=== PATIENT | female | born 1960 | race Caucasian/White ===

== ENCOUNTER 2024-11-04 10:29 | Outpatient (CLI) | payer OTHER, SELFPAY ==
--- NOTE | ~2024-11-04 | XR_ITS ---
EXAMINATION: XR chest 2V 11/04/2024 10:47 INDICATION: Productive cough PROCEDURE: 2 view chest COMPARISON: No prior studies for comparison. FINDINGS: The lungs are clear. There is calcified granuloma right middle lobe. The cardiomediastinal silhouette is within normal limits. There are no pleural effusions. There is no pneumothorax suspec carolyn. IMPRESSION: 1: NO ACUTE CARDIOPULMONARY DISEASE. Reviewed, dictated and finalized at location A.
--- OUTSIDE RECORDS SUMMARY | 2024-11-04 11:45 | XMS_ITS | Data Portability ---
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 She reports no acute injury, but pain for about 3 weeks in the knee. She also has swelling and pain that radiates from the medial aspect of her knee down the leg. She currently rates her pain as 8/10. She has been taking ibuprofen and naproxen. She has not had any other treatment. Review of systems per patient questionnaire. She has a history of a heart catheterization Physical exam: BMI 42.1. Nonantalgic gait. Neutral alignment. She has tenderness palpation over the medial joint line. Range of motion 0-140, positive Daniel's, 1A Christian, stable posterior drawer, stable varus and valgus stress, neurovascular intact X-rays of the knee were reviewed, demonstrating no acute bony abnormality. She has mild degenerative changes with joint space narrowing on the medial compartment For her knee pain which is atraumatic and been going on for about 3 weeks, we will begin with a course of conservative management with physical therapy and renewal for her naproxen. We discussed that many people have improvement after this course of conservative management, but if she continues have symptoms after the PT we will see her back as needed. At that point we would consider a cortisone injection or doing MRI. She is in agreement with the plan. [email or web address] Not available 01/02/2024 18:37:11 Plan of Treatment Reminders Order Date Submit Date Provider Last Modified By Organization Details Last Modified Time Details Appointments None recorded. Lab None recorded. Referral physical therapist referral - Please contact paatient to schedule 2023 024 [facility], [address] [place], [address], 4 12:05:23 Procedures colonoscop y procedure (PROC) 2024 025 [facility] (Pre-Screen), [address] [place], [address], 5 13:56:41 Surgeries None recorded. Imaging None recorded. Medication Orders dicyclomin e 10 mg capsule 2024 025 [facility], [address] [place] [address], [address], 5 11:46:24 Golytely 236 gram-22.74 gram-6.74 gram-5.86 gram oral solution 2024 025 [facility], [address] [place] [address], [address], 5 11:46:20 famotidine 40 mg tablet 2024 025 [email or web address] 1 [facility], [address] [place] [address], [address], 5 13:56:23 naproxen 500 mg tablet [address] [facility] [address] [facility], [address] [place] [address], [address], 5 10:41:12 pantoprazo le 40 mg tablet,del ayed release [address] [facility], [address] [place] [address], [address], 5 10:40:57 famotidine 40 mg tablet 2022 023 [facility], [address] [place], [address], 3 14:45:24 Patient TargetsNo targets recorded. Patient Instructions Encounter Date Encounter Id Patient Instructions Last Modified By Organization Details Last Modified Time 07/11/2023 [id number] PT WITH GERD DOI NG WELL WITH PANTOPRAZOLE 40 MG /D FAMOTIDINE 40 MG AT NIGHT . CONTINUE SAME .F/U IN 1 YR. [email or web address] Not available 07/11/2023 14:45:53 08/20/2024 [id number] GOLYTELY Not available 11:36:17 PT WITH ABD PAIN . REMOTE COLONOSCOPY . RECOMMEND COLON SCREENING . RISKS BENEFITS AND COMPLICATIONS WERE EXPLAINED TO PT . ( BLEEDING , PERFORATION , INFECTION , ) PT VERBALIZES UNDERSTANDING AND IS WILLING TO PROCEDE . [email or web address] Not available 08/20/2024 11:39:47 Reason for Referral Physical Therapist Referral for Pain of right knee joint Please contact paatient to schedule Referring Physician: Angel Alejandre, Orthopedic Surgery, Encounter Date: 01/02/2024 Results Created Date Observation Date Name Description Value Unit Range Abnormal Flag Note LastModifiedBy Organization Detail LastModifiedTime 12/27/19 24 XR, knee No observ ation record ed. [email or web address] Not Available 2023 17:13:23 Result Notes None recorded. Problems Name Problem SNOMED Code Status Onset Date Resolution Date Notes Provider Name and Address Organization Details Recorded Time Chronic back pain 514987426 Active Not Available [facility] 3 07:35:16 Wrist joint pain 413208678 Active Not Available [facility] 3 07:35:16 Plantar fasciitis 778835038 Active Not Available [facility] 3 07:35:16 Abdominal pain 22578505 Active Not Available [facility] 3 07:35:17 Gastroesop hageal reflux disease 147895631 Active Not Available [facility] 3 07:35:17 Gastroesop hageal reflux disease without esophagiti s 357005406 Active 2021 Not Available [facility] 3 07:35:17 Contusion of dorsum of foot 073436957 Active Not Available [facility] 3 07:35:17 Vitamin D deficiency 13797109 Active Not Available [facility] 3 07:35:17 Hypertensi ve disorder 47283759 Active Not Available [facility] 3 07:35:17 Dysphagia 22218244 Active Not Available [facility] 3 07:35:17 Obesity 879682243 Active Not Available [facility] 3 07:35:17 Gastritis 7506123 Active Not Available [facility] 3 07:35:17 Talipes planus 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 Procedures Surgical History Date Name Laterality Status Provider Name and Address Organization Details Recorded Time 08/06/19 20 Colonoscopy completed Not Available [facility] 10/04/2022 07:28:37 ligation of bilateral fallopian tubes completed Not Available [facility] 10/04/2022 07:28:37 Unlisted cranfcl&maxlfcl px completed Not Available [facility] 10/04/2022 07:28:37 Tonsillectomy completed Not Available [facility] 10/04/2022 07:28:37 Partial hysterectomy completed Not Available [facility] 10/04/2022 07:28:37 Cholecystectomy completed Not Available [facility] 10/04/2022 07:28:37 Breast Surgery completed Not Available [facility] 10/04/2022 07:28:37 Endoscopy completed Not Available [facility] 10/04/2022 07:28:37 Imaging Results Imaging Date Name Status LastModified by Organiz ation Details LastModified Time 12/27/2023 XR, knee completed [email or web address] Information no t available 12/27/2023 17:13:23 Procedure Notes None recorded. Medical Equipment None Reported. Allergies Allergen ID Allergen Name Allergen Category Reaction Reaction Severity Criticality Documentation Date Start Date Code Code System Note Provider Name and Address Organization Details Recorded Time 84164 Substance with sulfonami de structure and antibacte rial mechanism of action (substanc e) medicatio n Not available Not available Not available 10/04/2022 18835 8003 SNOMED Not Available [facility] 07:42:55 Medications Name Sig Start Date Stop Date Status Note LastModified by Organization Details LastModified Time Prescriptio n - Renewal 12/31 completed Not Available Not Available Not Available losartan 50 mg tablet TAKE 1 TABLET BY MOUTH ONCE DAILY IN THE MORNING active Not Available Not Available No t Available amoxicillin 500 mg capsule TAKE 1 CAPSULE BY MOUTH EVERY 8 HOURS 12/31 completed Not Available Not Available Not Available atorvastati n 40 mg tablet 01/05 completed Not Available Not Available Not Available trazodone 50 mg tablet TAKE 1 TABLET BY MOUTH ONCE DAILY AT BEDTIME 01/06 completed Not Available Not Available Not Available cetirizine 10 mg tablet TAKE 1 TABLET BY MOUTH ONCE DAILY FOR ALLERGIES active Not Available Not Available No t Available oxybutynin chloride ER 10 mg tablet,exte nded release 24 hr TAKE 1 TABLET BY MOUTH ONCE DAILY IN THE MORNING active Not Available Not Available No t Available azithromyci n 250 mg tablet TAKE 2 TABLETS BY MOUTH ON DAY 1, AND THEN TAKE 1 TABLET BY MOUTH ONCE A DAY ON DAY 2 THROUGH DAY 5 01/01 completed Not Available Not Available Not Available aspirin 325 mg tablet Take 1 tablet every day by oral route. 01/05 completed Not Available Not Available Not Available ibuprofen 800 mg tablet TAKE 1 TABLET BY MOUTH THREE TIMES DAILY WITH MEALS active Not Available Not Available No t Available hydrocodone 5 mg-acetamin ophen 325 mg tablet 04/21 completed Not Available Not Available Not Available Nystop 100,000 unit/gram topical powder APPLY TO THE AFECTED AREA(S) ROUTE 2 TIMES PER DAY 12/31 completed Not Available Not Available Not Available meloxicam 15 mg tablet TAKE 1 TABLET BY MOUTH ONCE DAILY NEEDED active Not Available Not Available No t Available famotidine 40 mg tablet TAKE 1 TABLET BY MOUTH ONCE DAILY AT BEDTIME active Not Available Not Available No t Available isosorbide mononitrate ER 30 mg tablet,exte nded release 24 hr TAKE 1 TABLET BY MOUTH ONCE DAILY 12/31 completed Not Available Not Available Not Available amlodipine 5 mg tablet TAKE 1 TABLET BY MOUTH ONCE DAILY active Not Available Not Available No t Available omeprazole 40 mg capsule,del ayed release TAKE 1 CAPSULE BY MOUTH ONCE DAILY AFTER A MEAL active Not Available Not Available No t Available aspirin 81 mg tablet,torrie yed release Take 1 tablet every day by oral route. 01/06 completed Not Available Not Available Not Available tramadol 50 mg tablet TAKE 1 TABLET BY MOUTH THREE TIMES DAILY NEEDED 12/31 completed Not Available Not Available Not Available triamcinolo ne acetonide 0.1 % topical cream APPLY CREAM EXTERNALL Y TO AFFECTED AREA TWICE DAILY FOR 7 DAYS 08/20 completed Not Available Not Available Not Available chlordiazep oxide 5 mg capsule 01/05 completed Not Available Not Available Not Available estradiol 1 mg tablet TAKE 1 TABLET BY MOUTH ONCE DAILY 01/06 completed Not Available Not Available Not Available hyoscyamine ER 0.375 mg tablet,exte nded release,12 hr Take 1 tablet every 12 hours by oral route as needed for 30 days. 01/06 completed Not Available Not Available Not Available trazodone 100 mg tablet TAKE 1 TABLET BY MOUTH TWICE DAILY active Not Available Not Available No t Available OneTouch Ultra Test strips USE 1 TEST STRIP TO CHECK BLOOD SUGAR LEVEL TWICE DAILY WHEN FEELING LIGHTHEAD ED OR DIZZY active Not Available Not Available No t Available benzonatate 100 mg capsule TAKE 1 CAPSULE BY MOUTH EVERY 8 HOURS NEEDED FOR COUGH AND CONGESTIO N 08/20 completed Not Available Not Available Not Available doxycycline monohydrate 100 mg capsule TAKE 1 CAPSULE BY MOUTH TWICE DAILY 01/05 completed Not Available Not Available Not Available paroxetine 20 mg tablet 04/21 completed Not Available Not Available Not Available pantoprazol e 40 mg tablet,torrie yed release TAKE 1 TABLET BY MOUTH ONCE DAILY BEFORE MEAL(S) 08/20 completed Not Available Not Available Not Available simvastatin 20 mg tablet TAKE 1 TABLET BY MOUTH IN THE EVENING 01/05 completed Not Available Not Available Not Available triamcinolo ne acetonide 0.1 % topical ointment 01/05 completed Not Available Not Available Not Available nystatin 100,000 unit/gram topical cream 01/05 completed Not Available Not Available Not Available losartan 25 mg tablet TAKE 1 TABLET BY MOUTH ONCE DAILY 12/31 completed Not Available Not Available Not Available metoprolol tartrate 50 mg tablet 01/06 completed Not Available Not Available Not Available hydrochloro thiazide 12.5 mg capsule 01/05 completed Not Available Not Available Not Available nitroglycer in 0.4 mg sublingual tablet DISSOLVE ONE TABLET UNDER THE TONGUE EVERY 5 MINUTES NEEDED FOR CHEST PAIN. DO NOT EXCEED A TOTAL OF 3 DOSES IN 15 MINUTES active Not Available Not Available No t Available oxybutynin chloride ER 5 mg tablet,exte nded release 24 hr 01/05 completed Not Available Not Available Not Available omeprazole 20 mg capsule,del ayed release TAKE 2 CAPSULES BY MOUTH ONCE DAILY IN THE MORNING 08/20 completed Not Available Not Available Not Available folic acid 1 mg tablet TAKE 1 TABLET BY MOUTH ONCE DAILY active Not Available Not Available No t Available ergocalcife rol (vitamin D2) 1,250 mcg (50,000 unit) capsule TAKE 1 CAPSULE BY MOUTH ONCE A WEEK active Not Available Not Available No t Available methylpredn isolone 4 mg tablets in a dose pack TAKE BY MOUTH DIRECTED ON INSIDE OF PACKAGE 01/05 completed Not Available Not Available Not Available albuterol sulfate HFA 90 mcg/actuati on aerosol inhaler INHALE 2 PUFFS BY MOUTH EVERY 4 TO 6 HOURS NEEDED FOR COUGH active Not Available Not Available No t Available paroxetine 40 mg tablet TAKE 1 TABLET BY MOUTH ONCE DAILY active Not Available Not Available No t Available oxybutynin chloride 5 mg tablet TAKE 2 TABLETS BY MOUTH TWICE DAILY 01/01 completed Not Available Not Available Not Available fluticasone propionate 50 mcg/actuati on nasal spray,suspe nsion USE 1 TO 2 SPRAY(S) IN EACH NOSTRIL ONCE DAILY active Not Available Not Available No t Available clotrimazol e 1 % topical cream APPLY CREAM TOPICALLY TO AFFECTED AREA TWICE DAILY FOR 7 DAYS 08/20 completed Not Available Not Available Not Available dicyclomine 10 mg capsule TAKE 1 CAPSULE BY MOUTH THREE TIMES DAILY NEEDED active Not Available Not Available No t Available loratadine 10 mg tablet TAKE 1 TABLET BY MOUTH ONCE DAILY AT BEDTIME active Not Available Not Available No t Available naproxen 500 mg tablet Take 1 tablet twice a day by oral route as needed for 30 days. 08/20 completed Not Available Not Available Not Available amoxicillin 875 mg-potassiu m clavulanate 125 mg tablet TAKE 1 TABLET BY MOUTH TWICE DAILY FOR 7 DAYS 08/20 completed Not Available Not Available Not Available neomycin-po lymyxin-hyd rocort 3.5 mg-10,000 unit/mL-1 % ear drops,susp INSTILL 3 DROPS IN TO BILATERAL EAR FOUR TIMES A DAY FOR 7 DAYS 08/20 completed Not Available Not Available Not Available metoprolol tartrate 25 mg tablet TAKE 1 TABLET BY MOUTH TWICE DAILY active Not Available Not Available No t Available isosorbide mononitrate 03/24 completed Not Available Not Available Not Available ranolazine ER 500 mg tablet,exte nded release,12 hr TAKE 1 TABLET BY MOUTH TWICE DAILY active Not Available Not Available No t Available fenofibrate nanocrystal lized 145 mg tablet TAKE 1 TABLET BY MOUTH ONCE DAILY active Not Available Not Available No t Available GaviLyte-G 236 gram-22.74 gram-6.74 gram-5.86 gram oral solution take as directed 2024 active Not Available Not Available Not Avai lable Trulicity 1.5 mg/0.5 mL subcutaneou s pen injector INJECT 1.5 MG SUB-Q EVERY WEEK DIRECTED 01/01 completed Not Available Not Available Not Available Trulicity 0.75 mg/0.5 mL subcutaneou s pen injector INJECT 0.75 MG EVERY WEEK BY SUBCUTANE OUS ROUTE DIRECTED 01/01 completed Not Available Not Available Not Available Fluzone Quad 2017-(PF) 60 mcg(15 mcgx4)/0.5 mL intramuscul ar syringe 12/31 completed Not Available Not Available Not Available OneTouch Ultra2 Meter USE TO CHECK BLOOD SUGAR WHEN FEELING LIGHTHEAD ED OR DIZZY 12/31 completed Not Available Not Available Not Available OneTouch Delica Plus Lancet 33 gauge USE EACH TO CHECK GLUCOSE TWICE DAILY WHEN FEELING LIGHT HEADED OR DIZZY 12/31 completed Not Available Not Available Not Available ID NOW COVID-19 Test Kit TEST DIRECTED 01/05 completed Not Available Not Available Not Available Trulicity 3 mg/0.5 mL subcutaneou s pen injector INJECT 3 MG EVERY WEEK UNDER THE SKIN 01/01 completed Not Available Not Available Not Available Trulicity 4.5 mg/0.5 mL subcutaneou s pen injector INJECT 4.5 MG SUBCUTANE OUSLY EVERY WEEK DIRECTED 01/01 completed Not Available Not Available Not Available Vitals Date Recorded Body mass index (BMI) Body height Oxygen saturation Oxygen saturation in Arterial blood by Pulse oximetry Pain severity - 0-10 verbal numeric rating [Score] - Reported Heart rate Body temperature Body weight Provider Name and Address Organization Details Last Updated DateTime 1 44.1 kg/m2 157.48 cm 95 % 95 % 0 61 /min 96.9 [degF] 023367. 76 g Not Available [facility] 3 07:31:31 Date Recorded Body mass index (BMI) Body height Oxygen saturation Oxygen saturation in Arterial blood by Pulse oximetry Heart rate Body temperature Body weight Systolic blood pressure Diastolic blood pressure Provider Name and Address Organization Details Last Updated DateTime 2 41.9 kg/m2 157.48 cm 99 % 99 % 72 /min 98.7 [degF] 481062. 65 g 124 mm[Hg] 60 mm[Hg] Not Available [facility] 3 07:31:29 Date Recorded Body height Body mass index (BMI) Body weight Heart rate Systolic blood pressure Diastolic blood pressure Provider Name and Address Organization Details Last Updated DateTime 3 157.48 cm 41.9 kg/m2 079450. 65 g 70 /min 122 mm[Hg] 62 mm[Hg] Nino Mederos [facility] [employer] 3 14:27:51 Date Recorded Body height Body mass index (BMI) Body weight Pain severity - 0-10 verbal numeric rating [Score] - Reported Provider Name and Address Organization Details Last Updated DateTime 01/02/2024 157.48 cm 42.1 kg/m2 695885.25 g 8 Sharon Callejas [facility] [employer] [facility] 01/02/2024 11:18:48 Date Recorded Body height Body mass index (BMI) Body weight Oxygen saturation Oxygen saturation in Arterial blood by Pulse oximetry Heart rate Systolic blood pressure Diastolic blood pressure Provider Name and Address Organization Details Last Updated DateTime 5 157.48 cm 44.8 kg/m2 508491. 13 g 97 % 97 % 61 /min 136 mm[Hg] 74 mm[Hg] LUKE Dougherty [place] [facility] [employer] [facility] 5 10:49:51 Social History Question Answer Notes LastModified by Organizat ion Details LastModified Time Tobacco Smoking Status Never Smoker Not Available [facility] 10/04/2022 07:28:01 Do You Have An Advance Directive? No [id number] Information not available 10/04/2022 What Is Your Level Of Alcohol Consumption? None MIGRATION.[id number] Information not available 10/04/2022 What Is Your Level Of Caffeine Consumption? Heavy [id number] Information not available 10/04/2022 How Much Tobacco Do You Chew? None MIGRATION.[id number] Information not available 10/04/2022 In The 14 Days Before Symptom Onset, Have You Had Close Contact With A Laboratory-confir med COVID-19 While That Case Was Ill? No MIGRATION.[id number] Information not available 10/04/2022 In The 14 Days Before Symptom Onset, Have You Had Close Contact With A Person Who Is Under Investigation For COVID-19 While That Person Was Ill? No [id number] 1325 Information not available 10/04/2022 What Type Of Diet Are You Following? REGULAR [id number].[id number] Information not available 10/04/2022 Which Illicit Or Recreational Drugs Have You Used? No MIGRATION.[id number] Information not available 10/04/2022 Do You Or Have You Ever Used E-cigarettes Or Vape? Never Used Electronic Cigarettes MIGRATION.[id number] [id number] Information not available 10/04/2022 What Is Your Occupation? Unemployed MIGRATION.548086 6889 Information not available 10/04/2022 Are There Any Guns Present In Your Home? No MIGRATION.348989 4821 Information not available 10/04/2022 What Was The Date Of Your Most Recent Tobacco Screening? 01/02/2024 [email or web address] Information not available 01/02/2024 What Is Your Relationship Status? MIGRATION.[id number] 1429 Information not available 10/04/2022 Do You Use Your Seat Belt Or Car Seat Routinely? Yes MIGRATION.563468 3804 Information not available 10/04/2022 Do You Have Smoke And Carbon Monoxide Detectors In Your Home? Yes MIGRATION.817929 7369 Information not available 10/04/2022 Do You Or Have You Ever Used Smokeless Tobacco? Never Used Smokeless Tobacco MIGRATION.120202 [id number] Information not available 10/04/2022 How Much Tobacco Do You Smoke? No MIGRATION.494232 3563 Information not available 10/04/2022 Do You Feel Stressed (tense, Restless, Nervous, Or Anxious, Or Unable To Sleep At Night)? [id number] MIGRATION.634087 5292 Information not available 10/04/2022 Do You Use Any Illicit Or Recreational Drugs? No MIGRATION.327734 5126 Information not available 10/04/2022 Do You Use Sunscreen Routinely? No MIGRATION.663959 0515 Information not available 10/04/2022 Have You Recently Traveled Abroad? No MIGRATION.395137 1540 Information not available 10/04/2022 Do You Or Have You Ever Used Any Other Forms Of Tobacco Or Nicotine? No MIGRATION.646662 4355 Information not available 10/04/2022 Sex: Unknown Functional Status Question Answer Note LastModified by Organizat ion Details LastModified Time What is your exercise level? Occasional [id number] Information not available 10/04/2022 Mental Status None recorded. Family History Relationship Description Onset Age of this Age Resolved Age Notes LastModified by Organization Details LastModified Time Mother Hypertensive disorder [id number] Not available 10/04/2022 07:28:40 Mother Hypercholest erolemia MIGRATION.580 [id number] Not available 10/04/2022 07:28:40 Father Hypertensive disorder MIGRATION.032 [id number] Not available 10/04/2022 07:28:40 Father Hypercholest erolemia MIGRATION.377 [id number] Not available 10/04/2022 07:28:40 Father Diabetes mellitus [id number].236 [id number] Not available 10/04/2022 07:28:40 Father Heart disease MIGRATION.347 [id number] Not available 10/04/2022 07:28:40 Sister Hypertensive disorder MIGRATION.861 [id number] Not available 10/04/2022 07:28:40 Sister Hypercholest erolemia MIGRATION.638 [id number] Not available 10/04/2022 07:28:40 Sister Diabetes mellitus MIGRATION.379 [id number] Not available 10/04/2022 07:28:40 Sister Kidney disease MIGRATION.297 [id number] Not available 10/04/2022 07:28:41 Sister Malignant tumor of ovary MIGRATION.248 [id number] Not available 10/04/2022 07:28:41 Medical History Condition Response INSOMNIA Y HIGH CHOLESTEROL / HYPERLIPIDEMIA Y BACK / NECK PROBLEMS Y OBESITY Y URINARY/BLADDER/KIDNEY PROBLEMS Y ARTHRITIS Y GI PROBLEMS Y HYPERTENSION Y Gynecological HistoryNo gynecological history recorded. Obstetrics History GPAL:G 0 P 0 0 0 0 Past Encounters Encounter ID Performer Location Encounter Start Date Encounter Closed Date Diagnosis/Indication Diagnosis SNOMED-CT Code Diagnosis ICD10 Code Diagnosis Note [id number] _MARINA_M IGRATION_ DEFAULT_1 _1 , 01/05/2021 00:00:00 01/05/2021 11:50:25 [id number] _MARINA_M IGRATION_ DEFAULT_1 _1 , 03/30/2021 00:00:00 03/30/2021 10:37:07 [id number] _OSMANYENA_M IGRATION_ DEFAULT_1 _1 , 04/05/2022 00:00:00 04/05/2022 12:06:40 [id number] Rena Tatum MD [facility] General Surgery [address] [address] 07/11/2023 14:25:50 07/11/2023 14:55:16 Gastroesophageal reflux disease without esophagitis 844493061 K21.9 [id number] Angel Alejandre MD [facility] [place] [address] [place] [address] 01/02/2024 11:00:06 01/02/2024 12:00:36 Pain of right knee joint 1494456615 15162 M25.133 [id number] Rena Tatum MD [facility] General Surgery [address] [address] 08/20/2024 10:38:04 08/20/2024 11:30:21 Gastroesophageal reflux disease without esophagitis 214005472 K21.9 Abdominal pain 72152654 R10.9 Health Concerns Section Related Observation LastModified by Organization Detai ls LastModified Time None Recorded Concern Status LastModified by Organization Details LastModified Time None Recorded Advance Directives Directive N: Payers Encounter Date Sequence Insurance Name Policy Number Policy Pearce Covered Member ID Pearce Member ID Guarantor Name 07/11/2023 1 [facility] ON OR AFTER 02/03/21 (MEDICAID REPLACEMENT - HMO) Ashia Ryan Dejan [id number] Ashia Palominous 01/02/2024 1 [facility] ON OR AFTER 02/03/21 (MEDICAID REPLACEMENT - HMO) Ashia Ryan Dejan [id number] Ashia Ryan Dejan 08/20/2024 1 [facility] ON OR AFTER 02/03/21 (MEDICAID REPLACEMENT - HMO) Ashia Ryan Dejan [id number] Ashia Palominous Notes Date Note Type Note Provider Name and Address Organization Details Recorded Time 07/11/2023 text/html ASHIA WAS SEEN I N THE OFFICE TODAY FOR F/U . PT IS DOING WELL . HOWEVER SHE IS C/O FOOD IN HER THROAT SINCE STARTING TRULICITY . SHE DENIES N/V PYROSIS. Rena Tatum MD [address], [place] [address], [place], [address], [employer] 07/11/2023 14:46:22 08/20/2024 text/html ASHIA WAS SEEN I N THE OFFICE TODAY FOR A F/U. PT IS C/O B/L LOWER ABD PAIN NOT ASSOCIATED WITH DIARRHEA/ CONSTIPATION . ABD IS TENDER TO TOUCH. PT LAST SCOPE WAS MANY YRS AGO . PT IS TAKING DICYCLOMINE 10 MG 2X DAILY FOR ABD CRAMPING. Rena Tatum MD [address] [facility] [address], [place], [address], [email or web address] 08/20/2024 15:53:52 OBGyn Episode No OBEpisode recorded.
--- OUTSIDE RECORDS SUMMARY | 2024-11-04 11:45 | XMS_ITS | CONTINUITY OF CARE DOCUMENT ---
Author Name darvin, darvin Address Unknown Organization [facility] Address [address] [facility] [address] [place] [address] Phone [phone] Care Team Providers Care Investor Relations Associate Name Role Phone Kaveh MILLER, Willi Unavailable BRITT MILLER, PATIENCE Unavailable PATIENCE DE LA TORRE MD Unavailable PROBLEMS Condition Status Date Provider Notes Angina active Eli Valdivia Family History of Hyperlipidemia: completed - Willi Linn MD Family history of CAD completed - Willi Linn MD Other symptoms involving cardiovascular system completed - Willi Linn MD Chest pain-type to be determined completed - Willi Linn MD HYPERTENSION active Willi Linn MD SOB active Willi Linn MD Obesity active Willi Linn MD Leg pain, right? PVD completed - Willi Linn MD Leg Edema completed - Willi Linn MD Numbness and tingling sensation of skin active Willi Linn MD MARGARITA, unable to tolerate CPAP active Loren Linn MD Carotid bruit, left active Willi Hernandez GERD active Willi Linn MD Hyperlipidemia active Willi Linn MD Diaphoresis active Willi Linn MD Chest pain - nl cors by cath 10/2022 active Willi Linn MD Lung nodule active Willi Linn MD Venous insufficiency active Willi Linn MD Fatigue active Radha Lazo ENCOUNTERS Date Type Provider Location Encounter Diag nosis - In-person encounter Office Visit Willi Linn MD [facility] - In-person encounter Office Visit Willi Linn MD [facility] - In-person encounter Office Visit Willi Linn MD [facility] - In-person encounter Office Visit Willi Linn MD [facility] Leg EdemaChest pain - nl cors by cath 10/2022 - In-person encounter Office Visit Willi Linn MD [facility] - In-person encounter Office Visit Willi Linn MD [facility] - In-person encounter Office Visit Willi Linn MD [facility] - In-person encounter Office Visit Willi Linn MD [facility] Fatigue - In-person encounter Office Visit Willi Linn MD [facility] Venous insufficiency - In-person encounter Office Visit Willi Linn MD [facility] - In-person encounter Office Visit Willi Linn MD [facility] - In-person encounter Office Visit Willi Linn MD [facility] - In-person encounter Office Visit Willi Linn MD [facility] Chest pain - nl cors by cath 10/2022Lung nodule - In-person encounter Office Visit Willi Linn MD [facility] Family history of CADChest pain-type to be determinedLeg pain, right? PVDOSA, unable to tolerate CPAPDiaphoresis - In-person encounter Office Visit Efraín Blanc MD [facility] - In-person encounter Office Visit Willi Linn MD [facility] GERDHyperlipidemia - In-person encounter Office Visit Willi Linn MD [facility] Family History of Hyperlipidemia:Family history of CADOther symptoms involving cardiovascular systemNumbness and tingling sensation of skinOSA, unable to tolerate CPAPCarotid bruit, left - In-person encounter Office Visit Willi Linn MD [facility] - In-person encounter Office Visit Willi Linn MD [facility] - In-person encounter Office Visit Willi Linn MD [facility] - In-person encounter Office Visit Willi Linn MD [facility] HYPERTENSIONSOBObesity - In-person encounter Office Visit [facility] Office - In-person encounter Office Visit [facility] Office - In-person encounter Office Visit [facility] Office - In-person encounter Office Visit [facility] Office - In-person encounter Office Visit [facility] Office VITAL SIGNS Date Observation Value Provider Body Mass Index (Ratio) 44.81 kg/m2 Garry Linn MD blood pressure, cuff size large Ke rri Josephuemageder blood pressure, diastolic 80 mm[Hg] Ke rri Josephuenelisaelder blood pressure, systolic 126 mm[Hg] Robbin ri [facility], oximetry 94 % Ginette [facility] pulse rate 82 /min Ginette Matt weight E&M 245 [lb_av] Ginette Matt height E&M 62 [in_i] Ginette Matt Body Mass Index (Ratio) 43.53 kg/m2 Garry Linn MD blood pressure, diastolic -1 mm[Hg] Yoli nkLogic blood pressure, systolic 125 mm[Hg] Teena kLogic blood pressure, diastolic 84 mm[Hg] Velasquez rret blood pressure, systolic 125 mm[Hg] Jar ret pulse rate 66 /min Alon y blood pressure, cuff size regular Vealsquez rret oxygen saturation, oximetry 96 % respiratory rate E&M 16 /min Alon weight E&M 238 [lb_av] Alon y height E&M 62 [in_i] Alon da y blood pressure, diastolic 81 mm[Hg] Nikita Linn MD blood pressure, systolic 161 mm[Hg] Valerie Linn MD height E&M 62 [in_i] Joya Lopez Body Mass Index (Ratio) 43.71 kg/m2 Brian Abraham pulse rate 56 /min Augusta Keller blood pressure, diastolic 92 mm[Hg] Nadine Keller blood pressure, systolic 156 mm[Hg] Gladis Keller oxygen saturation, oximetry 94 % Augusta Krishna weight E&M 239 [lb_av] Augusta Krishna blood pressure, cuff size large Nadine carmen Krishna height E&M 62 [in_i] Augusta Krishna Body Mass Index (Ratio) 42.98 kg/m2 Rocky Daysi blood pressure, diastolic 88 mm[Hg] [facility] blood pressure, systolic 160 mm[Hg] [facility] blood pressure, diastolic 88 mm[Hg] [facility] blood pressure, systolic 160 mm[Hg] [facility] pulse rate 53 /min Birdie Amador blood pressure, cuff size regular Betina Amador blood pressure, diastolic 88 mm[Hg] venancio Amador blood pressure, systolic 160 mm[Hg] She rekha Amador oxygen saturation, oximetry 96 % Birdie Amador respiratory rate E&M 20 /min Birdie Amador weight E&M 235 [lb_av] Birdie Amador height E&M 62 [in_i] Birdie Amador Body Mass Index (Ratio) 43.16 kg/m2 Ann-Marie aguillon [place] blood pressure, cuff size large Ke rri Annika blood pressure, diastolic 84 mm[Hg] Ke rri Annika blood pressure, systolic 140 mm[Hg] Robbin Roblero oxygen saturation, oximetry 94 % Ginette Roblero respiratory rate E&M 14 /min Ginette rosenberg pulse rate 61 /min Ginette Gutierrez [facility] weight E&M 236 [lb_av] Ginetet Gutierrez [facility] height E&M 62 [in_i] Ginette Matt riggins Body Mass Index (Ratio) 42.43 kg/m2 Garry Linn MD blood pressure, diastolic 84 mm[Hg] St acy Ameya blood pressure, systolic 137 mm[Hg] Sta cy Ameya oxygen saturation, oximetry 96 % Layne Ameya pulse rate 55 /min Layne Ameya respiratory rate E&M 16 /min Layne D monika weight E&M 232 [lb_av] Layne Ameya height E&M 62 [in_i] Layne Ameya Body Mass Index (Ratio) 41.92 kg/m2 Ann-Marie Lazo blood pressure, diastolic 79 mm[Hg] Yoli nkLogic blood pressure, systolic 146 mm[Hg] Teena kLogic blood pressure, diastolic 79 mm[Hg] St acy Ameya blood pressure, systolic 146 mm[Hg] Sta cy Ameya oxygen saturation, oximetry 94 % Layne Ameya respiratory rate E&M 16 /min Layne D monika pulse rate 72 /min Layne Ameya weight E&M 229.2 [lb_av] Layne Ameya height E&M 62 [in_i] Layne Ameya Body Mass Index (Ratio) 42.03 kg/m2 Ann-Marie Lazo blood pressure, cuff size regular St acy Ameya blood pressure, diastolic 91 mm[Hg] St acy Ameya blood pressure, systolic 151 mm[Hg] Sta cy Ameya oxygen saturation, oximetry 97 % Layne Ameya pulse rate 66 /min Layne Ameya respiratory rate E&M 16 /min Layne D monika weight E&M 229.8 [lb_av] Layne Ameya height E&M 62 [in_i] Layne Ameya Body Mass Index (Ratio) 42.43 kg/m2 Garry Linn MD blood pressure, diastolic 81 mm[Hg] Joyce mccartney Del Angel blood pressure, systolic 132 mm[Hg] Christopher hussein [place] Angel oxygen saturation, oximetry 97 % Mahi Bean pulse rate 78 /min Mahi Bebe hernandez weight E&M 232 [lb_av] Mahi Spence david respiratory rate E&M 16 /min Lashanda abrams Bean blood pressure, cuff size large Joyce mccartney Del Angel height E&M 62 [in_i] Mahi Spence david Body Mass Index (Ratio) 44.66 kg/m2 Aldo Salter blood pressure, diastolic 80 mm[Hg] Li nkLogkaern blood pressure, systolic 146 mm[Hg] Teena kLogkaren blood pressure, diastolic 80 mm[Hg] Felton Richter blood pressure, systolic 146 mm[Hg] Jana Richter oxygen saturation, oximetry 97 % Abhinav Richter respiratory rate E&M 16 /min Anai Richter pulse rate 56 /min Abhinav alexander weight E&M 244.2 [lb_av] Abhinav Joni enson height E&M 62 [in_i] Abhinav Kobe benjamin Body Mass Index (Ratio) 44.44 kg/m2 Garry Linn MD blood pressure, cuff size regular Cy trinh Rooney blood pressure, diastolic 78 mm[Hg] Ammon Rooney blood pressure, systolic 134 mm[Hg] Maeve Rooney oxygen saturation, oximetry 97 % Marixa Rooney pulse rate 58 /min Marixa Salinas l respiratory rate E&M 16 /min Marixa Rooney weight E&M 243 [lb_av] Marixajennifer Garciabel l height E&M 62 [in_i] Marixa Garciabel l Body Mass Index (Ratio) 43.16 kg/m2 Lavell n Kyte blood pressure, cuff size large Ke rri Gruenenfelder blood pressure, diastolic 74 mm[Hg] Ke rri Gruenenfelder blood pressure, systolic 126 mm[Hg] Ker ri Gruenenfelder oxygen saturation, oximetry 94 % Ginette Gruenenfelder respiratory rate E&M 16 /min Ginette G ruenenfelder pulse rate 64 /min Ginette Gruenenfe lder weight E&M 236 [lb_av] Ginette Gruenenfe lder height E&M 62 [in_i] Ginette Gruenenfe lder Body Mass Index (Ratio) 45.35 kg/m2 Garry Linn MD blood pressure, cuff size regular Cy trinh Rooney blood pressure, diastolic 70 mm[Hg] Cy trinh Rooney blood pressure, systolic 136 mm[Hg] Maeve jennifer Toribio oxygen saturation, oximetry 96 % Marixa Rooney respiratory rate E&M 16 /min Marixa Rooney pulse rate 58 /min Marixa Salinas l weight E&M 248 [lb_av] Marixa Garciabel l height E&M 62 [in_i] Marixa Garciabel l Body Mass Index (Ratio) 44.62 kg/m2 Kavitha Blanc MD blood pressure, diastolic 90 mm[Hg] Felton Tavera'Gunnar blood pressure, systolic 128 mm[Hg] Jana teran pulse rate 73 /min Danielle respiratory rate E&M 16 /min Danielle oxygen saturation, oximetry 92 % Danielle weight E&M 244 [lb_av] Danielle height E&M 62 [in_i] Danielle Body Mass Index (Ratio) 45.17 kg/m2 Garry Linn MD blood pressure, cuff size large Ke rauli Annika blood pressure, diastolic 90 mm[Hg] Andrews carteri Annika blood pressure, systolic 150 mm[Hg] Robbin Roblero oxygen saturation, oximetry 97 % Ginette Roblero respiratory rate E&M 18 /min Ginette rosenberg pulse rate 59 /min Ginette Gutierrez er weight E&M 247 [lb_av] Ginette Gutierrez er height E&M 62 [in_i] Ginette Gutierrez er blood pressure, resting Yes Garry Linn MD Body Mass Index (Ratio) 44.44 kg/m2 Garry Linn MD blood pressure, cuff size large Krystyna Ayala blood pressure, diastolic 88 mm[Hg] Krystyna Ayala blood pressure, systolic 118 mm[Hg] Jonas Ayala oxygen saturation, oximetry 97 % Love Ayala respiratory rate E&M 16 /min Love Ayala pulse rate 65 /min Love Ayala weight E&M 243 [lb_av] Love Ayala height E&M 62 [in_i] Love Ayala blood pressure, diastolic 80 mm[Hg] Felton Richter blood pressure, systolic 130 mm[Hg] Jnaa Richter pulse rate 60 /min Abhinav alexander oxygen saturation, oximetry 96 % Abhinav Richter respiratory rate E&M 16 /min Anai Richter Body Mass Index (Ratio) 42.68 kg/m2 Ashanti Richter weight E&M 233.4 [lb_av] Abhinav issa blood pressure, diastolic 90 mm[Hg] Felton Richter blood pressure, systolic 160 mm[Hg] Jana Richter pulse rate 56 /min Abhinav alexander oxygen saturation, oximetry 96 % Abhinav Richter respiratory rate E&M 16 /min Anai Richter Body Mass Index (Ratio) 42.50 kg/m2 Ashanti Richter weight E&M 232.4 [lb_av] Abhinav issa blood pressure, diastolic 80 mm[Hg] Felton Richter blood pressure, systolic 110 mm[Hg] Jana Richter pulse rate 58 /min Abhinav alexander oxygen saturation, oximetry 95 % Abhinav Richter respiratory rate E&M 16 /min Anai Richter Body Mass Index (Ratio) 41.95 kg/m2 Ashanti Richter weight E&M 229.4 [lb_av] Abhinav issa blood pressure, diastolic, left arm 88 mm [Hg] Jeri Med blood pressure, systolic, left arm 142 mm [Hg] Jeri Med blood pressure, diastolic, right arm 80 m m[Hg] Jeri Med blood pressure, systolic, right arm 136 m m[Hg] Jeri Med blood pressure, diastolic 88 mm[Hg] Mn dolores Med blood pressure, systolic 142 mm[Hg] Lyndsey meli Med pulse rate 58 /min Jeri Jovel oxygen saturation, oximetry 95 % Jeri Jovel respiratory rate E&M 16 /min Jeri Jovel Body Mass Index (Ratio) 42.25 kg/m2 Daily Jovel height E&M 62 [in_i] Jeri Jovel weight E&M 231.0 [lb_av] Jeri Jovel ALLERGIES Allergy Name Onset Date Reaction Criticality Status ISOSORBIDE severe headache Low Criticality acti ve SULFA Low Criticality active RESULTS Date Observation Value Provider Reference Range Interpretation Location 7 lipoprotein, beta, serum, point, quantitative, [facility] cholesterol, serum 198 mg/dL Karen Howe 7 creatinine, serum 0.76 mg/dL Karen Howe 7 potassium, serum 4.2 mmol/L [facility] sodium, serum 139 mmol/L [facility] platelet count 293 10*3/mm3 [facility] 7 hematocrit, blood 42.6 % Karen Howe HISTORY OF MEDICATION USE Medication Status Instructions Dates Provider Indications Com ments ranolazine 500 mg tablet extended release 12 hr active Take 1 tablet by mouth twice a day 03/07 Ginette Roblero albuterol sulfate 90 mcg/actuation HFA aerosol inhaler active INHALE 1 TO 2 PUFFS BY MOUTH EVERY 4 TO 6 HOURS NEEDED FOR SHORTNESS OF BREATH ranolazine 500 mg tablet extended release 12 hr completed Take 1 tablet by mouth twice daily 03/17 - 03/07 Ginette Roblero ranolazine 500 mg tablet extended release 12 hr completed Take 1 tablet by mouth twice a day - 03/17 Ginette Roblero Angina Ranexa 500 mg tablet extended release 12 hr completed 1 tablet by mouth twice a day TAKE 1 TABLET BY MOUTH TWICE DAILY FOR CHRONIC ANGINA 11/22 - 12/04 Eli Skip losartan 50 mg tablet active Take 1 tab let by mouth once daily 08/11 Willi Linn MD metoprolol tartrate 25 mg tablet active Take 1 tablet by mouth twice daily Willi Linn MD amlodipine 5 mg tablet active Take 1 tablet by mouth once daily 04/30 Eli Valdivia amlodipine 5 mg tablet completed Take one tablet by mouth once daily 02/18 - 04/30 Willi Linn MD RANEXA 500 MG ORAL TABLET EXTENDED RELEASE 12 HOUR completed Take one tablet by mouth twice daily. 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 10 mg capsule active as needed Ginette Roblero VITAMIN D2 TABLET active Take 1 tablet once a week 04/17 Marixa Rooney fenofibrate nanocrystallized 145 mg tablet active Take 1 tablet once a day 04/17 Marixa Rooney hydrochlorothiazide 12.5 mg capsule completed 1 tablet once a day 09/18 - 11/22 [employer] HOWELLP losartan 25 mg tablet completed Take 1 tab let by mouth once a day 09/20 - 08/11 Ventura Cordoba SIMVASTATIN 20MG TAB completed TAKE 1 TABL ET BY MOUTH IN THE EVENING 02/18 - 04/17 Marixa Rooney omeprazole 40 mg capsule,delayed release(DR/EC) active 1 capsule once a day 03/20 Birdie Weiner NP Nitrostat 0.4 mg tablet, sublingual active 1 tablet under tongue as directed 1 tablet under tongue for chest pain. May repeat every 5 minutes if still having chest pain- to max of 3 tablets per episode.If no relief after 3rd dose, go to ER 03/20 Willi Linn MD metoprolol tartrate 25 mg tablet completed Take 1 tablet by mouth twice a day 04/19 - Willi Linn MD LOSARTAN POTASSIUM 25 MG ORAL TABLET completed take once a day 12/28 - 02/20 Ginette Roblero oxybutynin chloride 5 mg tablet extended release 24hr active Take 1 tablet once a day 03/20 Alon tramadol 50 mg tablet active 1 tablet every eight hours as needed Willi Linn MD estradiol 1 mg tablet completed Take 1 onc e a day 03/20 - 02/19 Alon ASPIRIN 81 81 MG TBEC active once a day [facility] behzad Linn MD Paxil 40 mg tablet active Take 1 tablet once a day 03/20 Marixa Rooney METOPROLOL SUCCINATE ER 50 MG ORAL TABLET EXTENDED RELEASE 24 HOUR completed one tablet once daily - 02/20 Love Ayala SOCIAL HISTORY Date Observation Value Provider drug use no Willi Linn MD alcohol use no Willi Linn MD smoking status Never smoker Willi kern MD drug use no Willi Linn MD alcohol use no Willi Linn MD smoking status Never smoker Willi kern MD drug use no Vidal Rowe alcohol use no Vidal Rowe smoking status Never smoker Vidal Vieiraina vandana social history reviewed E&M revi ewed - no changes required Willi Linn MD social history E&M S moking History: P amalia has never smoked. Willi Linn MD smoking status Never smoker Augusta Keller social history E&M S moking History: P amalia has never smoked. 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 Willi Linn MD social history reviewed E&M revi ewed - no changes required Willi Linn MD smoking status Never smoker Ginette Wendy cagle social history E&M S moking History: Kathleen holland has never smoked. Willi Linn MD social history reviewed E&M revi ewed - no changes required Willi Linn MD smoking status Never smoker Layne Hou social history reviewed E&M revi ewed - no changes required Willi Linn MD social history E&M S moking History: Kathleen holland has never smoked. Willi Linn MD social history reviewed E&M revi ewed - no changes required Willi Linn MD smoking status Never smoker Layne Hou social history E&M S moking History: Kathleen holland has never smoked. Willi Linn MD social history reviewed E&M revi ewed - no changes required Willi Linn MD smoking status Never smoker Mahi Ovalles and smoking status Never smoker Willi kern MD social history reviewed E&M revi ewed - no changes required Willi Linn MD smoking status Never smoker Willi kern MD social history reviewed E&M revi ewed - no changes required Willi Linn MD social history E&M S moking History: Kathleen holland has never smoked. Willi Linn MD social history reviewed E&M revi ewed - no changes required Willi Linn MD smoking status Never smoker Ginette cagle social history E&M S moking History: Kathleen holland has never smoked. Willi Linn MD social history reviewed E&M revi ewed - no changes required Willi Linn MD smoking status Never smoker Marixa Tamez suzanne social history E&M S moking History: Kathleen holland has never smoked. Birdie Weiner NP social history reviewed E&M revi ewed - no changes required Birdie Weiner NP alcohol use no Danielle O'Gunnar smoking status Never smoker Danielle O'Gunnar number of grandchildren Willi Linn MD social history E&M S moking History: Kathleen holland has never smoked. Willi Linn MD social history reviewed E&M revi ewed - no changes required Willi Linn MD alcohol use no Ginette Gutierrez lder smoking status Never smoker Ginette Nguyen tsering social history reviewed E&M revi ewed - no changes required Willi Linn MD social history E&M Smoking Histo ry: Kathleen holland has never smoked. Willi Linn MD alcohol use no Love Ayala smoking status Never smoker Love Ayala social history E&M S moking History: Kathleen holland has never smoked. Willi Linn MD social history reviewed E&M revi ewed - no changes required Willi Linn MD smoking status Never smoker Abhinav Rueda social history E&M S moking History: Kathleen holland has never smoked. Willi Linn MD social history reviewed E&M revi ewed - no changes required Willi Linn MD smoking status Never smoker Abhinav Rueda smoking status Never smoker Willi kern MD social history E&M S moking History: Kathleen holland has never smoked. Willi Linn MD social history reviewed E&M revi ewed - no changes required Willi Linn MD social history E&M S moking History: Kathleen holland has never smoked. Willi Linn MD social history reviewed E&M revi ewed - no changes required Willi Linn MD smoking status Never smoker [facility] FUNCTIONAL STATUS Date Observation Value Provider HRA, CV Assess/Plan, Angina (inactive) Management Plan continue current therapy, antianginal therapy Willi Linn MD HRA, CV Assess/Plan, Angina (inactive) Management Plan continue current therapy Willi Linn MD HRA, CV Assess/Plan, Angina (inactive) Management Plan continue current therapy Willi Linn MD HRA, CV Assess/Plan, Angina (inactive) Management Plan continue current therapy Willi Linn MD FAMILY HISTORY Family Member Condition Father Family History of Co ronary Artery Disease: Father Family History of Di abetes: Mother Family History of Co ronary Artery Disease: Mother Family History of Hy pertension: Mother Family History of Hy perlipidemia: INSURANCE PROVIDERS Payer name Policy type / Coverage type [facility] ID [place] MEDICAID (2) Medicaid [id number] ADVANCE DIRECTIVES Name Date DISCUSSED - NO DECISION MADE TREATMENT PLAN Date Name Performer [id number],C, E ffort related SOB stable. Willi Linn MD [id number],C, W eight loss advised. Willi Linn MD [id number],C, B ilateral GSV insufficiency by doppler 04/2022. Advised use of compression stockings. Willi Linn MD [id number],C, C ontinues on fenofibrate. Willi Linn MD [id number],C, I mproved on ranexa. Likely secondary to microvascular disease. Willi Linn MD [id number],C, B P elevated today. Patient reports better controlled BPs at home. Advised routine home monitoring and dietary sodium restriction. Willi Linn MD [id number],C,l ifestyle modification encouraged [employer] [facility] [id number],C,r emains on fenofibrate H er updated medication list for this problem includes: Fenofibrate Nanocrystallized 145 Mg Tablet (Fenofibrate nanocrystallized) ..... Take 1 tablet once a day [employer] [facility] [id number],C,B P 160/88 today P atient reports controlled at home. Have asked her to monitor and bring readings to next visit W ill adjust meds if needed at upcoming f/u. T he following medications were removed from the medication list: Hydrochlorothiazide 12.5 Mg Capsule (Hydrochlorothiazide) ..... 1 tablet once a day Her updated medication list for this problem includes: Amlodipine 5 Mg Tablet (Amlodipine) ..... Take 1 tablet by mouth once daily Metoprolol Tartrate 25 Mg Tablet (Metoprolol tartrate) ..... Take 1 tablet by mouth twice daily Losartan 50 Mg Tablet (Losartan) ..... Take 1 tablet by mouth once daily [employer] [facility] [id number],C,A typical may be secondary to stress. She however, continues to have issues and has risk factors for micorvascular angina. Will trial ranexa and have her return in 3 mos or sooner if needed. Recent cath showed normal coronaries and a normal EF H er updated medication list for this problem includes: Ranexa 500 Mg Tablet Extended Release 12 Hr (Ranolazine) ..... 1 tablet by mouth twice a day take 1 tablet by mouth twice daily for chronic angina Amlodipine 5 Mg Tablet (Amlodipine) ..... Take 1 tablet by mouth once daily Metoprolol Tartrate 25 Mg Tablet (Metoprolol tartrate) ..... Take 1 tablet by mouth twice daily Nitrostat 0.4 Mg Tablet, Sublingual (Nitroglycerin) ..... 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 Willi Linn MD [id number],S, C ontinues on Fenofibrate. Willi Linn MD [id number],C,B P elevated today at 140/84. Advised reduced sodium intake and routine monitoring of the blood pressure. We aim for less than 130/80. Willi Linn MD [id number],C, W ill perform R/L cardiac cath Willi Linn MD [id number],C, C ontinues to have chest pains when she walks, continues for 5-10 minutes, then resolves with rest. Also has SOB and nausea with it. Will proceed with cardiac cath Willi Linn MD [id number],C, W eight loss advised. Willi Linn MD [id number],C,C ontinues to use compression stockings. Willi Linn MD [id number],C,B lood pressure control is satisfactory. Willi Linn MD [id number],C, C ontinues on Fenofibrate. Willi Linn MD [id number],C,O ccasionally gets pressure in her chest when she is upset. Also has associated symptoms of SOB and nausea. CP resolves after sitting down for a while. Stress test from 08/14/2022 showed EF of 60% and a large fixed inferior wall defect. If her symptoms persist, cardiac cath would be the next step. I have discussed this with the patient and she will let us know. Willi Linn MD [id number],C,C omplaining of persistent fatigue, even on days she does not exert herself. Also complaining of SOB and chest pressure. Will check stress test regadenoson Radha Lazo [id number],S, P t complains of intermittent chest pressure. Occurs throughout the day and at night, occasionally wakes her up. If she feels it, she reduces how much she eats and she feels better. Also complaining of SOB and fatigue. We will check stress test regadenoson to rule out ischemic causes. O n nitroglycerin as needed. Continues on daily aspirin Radha Lazo [id number],C, E ffort-related SOB, likely multifactorial related to weight and deconditioning. Echo showed normal EF of 55%. PFT showed moderate neuromuscular disease. She is experiencing fatigue and chest pressure as well. We will check stress test regadenoson to rule out ischemic causes. Radha Clifton [id number],S, W eight loss advised. Willi Linn MD [id number],C, C ontinues on Fenofibrate. Last LDL 03/2022 was 63. W ill obtain labwork from PCP;s office Willi Linn MD [id number],C,B P elevated today at 146/79. Advised reduced sodium intake and routine monitoring of the blood pressure. We aim for less than 130/80. Willi Linn MD [id number],S, W eight loss advised. Radha Clifton [id number],C, C ontinues on Fenofibrate. Last LDL 03/2022 was 63. Radha Hannagarret [id number],C, E ffort-related SOB, likely multifactorial related to weight and deconditioning. She also just recovered from Covid which is exacerbating her SOB. ProBNP was 325. Echo showed normal EF of 55%. PFTs to be done tomorrow. Radha Clifton [id number],C, C hest pain free. On nitroglycerin as needed. Continues on daily aspirin Radha Lazo [id number],C,C ontinues to have intermittent leg swelling bilaterally. Advised the use of compression stockings to ease her swelling. Willi Linn MD [id number],C, B lood pressure elevated at 151/91. Advised reduced sodium intake and routine monitoring of the blood pressure. We aim for less than 130/80. W ill increase her Losartan to 50 mg daily Willi Linn MD [id number],C, C ontinues on Fenofibrate.Last LDL 03/2022 was 63. Willi Linn MD [id number],S, W eight loss advised. Willi Linn MD [id number],W, B LE swelling off and on. Likely venous insufficiency. Will evaluate with a venous reflux study. Symptoms began before starting amlodipine. Advised dietary sodium restriction. Willi Linn MD [id number],W, E ffort-related SOB, likely multifactorial related to weight and deconditioning, when chasing her grandkids or doing housework. Will check pBNP. Last echo in 2020 showed normal LVF. Will recheck echo and PFTs. Willi Linn MD [id number],S, B lood pressure control is satisfactory. Willi Linn MD [id number],S, C ontinues on Fenofibrate. Will recheck lipid panel. Willi Linn MD [id number],S, I mproved with amlodipine. Patient underwent cardiac cath on 12/29/2020 showing normal coronaries. On nitroglycerin as needed. Willi Linn MD [id number],C,C ontinues on Fenofibrate. Willi Linn MD [id number],C,B P is elevated at 148/80. Advised reduced dietary sodium intake, routine blood pressure monitoring, and implementing an exercise regimen for weight loss. Willi Linn MD [id number],C,P atient underwent cardiac cath on 12/29/2020 showing normal coronaries. On nitroglycerin as needed. Willi Linn MD [id number],C,L eg swelling after starting on Imdur. Will discontinue Imdur. Start on Ranexa 500 mg twice daily. Willi Linn MD Cardiology: W eight loss advised. Willi Linn MD Cardiology: U nable to tolerate CPAP is sleeping better Willi Linn MD Cardiology:Aim for L DL below 70 Her updated medication list for this problem includes: Fenofibrate Nanocrystallized 145 Mg Tablet (Fenofibrate nanocrystallized) ..... Take 1 tablet once a day Willi Linn MD Cardiology:Blood pre ssure is satisfactory. H er updated medication list for this problem includes: Amlodipine 5 Mg Tablet (Amlodipine) ..... Take 1 tablet by mouth once daily Metoprolol Tartrate 25 Mg Tablet (Metoprolol tartrate) ..... Take 1 tablet by mouth twice daily Losartan 50 Mg Tablet (Losartan) ..... Take 1 tablet by mouth once daily BP today: 126/80 P rior BP: 125/-1 (02/20/2024) Labs Reviewed: C reat: 0.76 (10/02/2012) C hol: 198 (10/02/2012) LDL: 114 (10/02/2012) Willi Linn MD Cardiology: noting s ome SOB, no CAD on cath from 2022. EF 60 % by cath 2022 Willi Linn MD Cardiology:Noting oc casional episodes; improved on ranolazine; continue meds No CAD on cath 2022 Willi Linn MD Cardiology: H er updated medication list for this problem includes: Omeprazole 40 Mg Capsule,delayed Release(dr/ec) (Omeprazole) ..... 1 capsule once a day Willi Linn MD Cardiology:Unable to tolerate CP AP Willi Linn MD Cardiology:Denies SOB Willi emerson MD Cardiology:Aim for L DL below 70 Her updated medication list for this problem includes: Fenofibrate Nanocrystallized 145 Mg Tablet (Fenofibrate nanocrystallized) ..... Take 1 tablet once a day Willi Linn MD Cardiology: denies angina H as not taken any nitro for chest pain Willi Linn MD Cardiology: B P today: 125/84 P rior BP: 161/81 (08/22/2023) Her updated medication list for this problem includes: Amlodipine 5 Mg Tablet (Amlodipine) ..... Take 1 tablet by mouth once daily Metoprolol Tartrate 25 Mg Tablet (Metoprolol tartrate) ..... Take 1 tablet by mouth twice daily Losartan 50 Mg Tablet (Losartan) ..... Take 1 tablet by mouth once daily Willi Linn MD Cardiology: S he notices some feet and leg swelling. S he has not been wearing her compression stockings but notices swelling improves when she does wear them Willi Linn MD Cardiology: H er updated medication list for this problem includes: Omeprazole 40 Mg Capsule,delayed Release(/ec) (Omeprazole) ..... 1 capsule once a day Vidal Rowe Cardiology:denies angina Vidal Rowe Cardiology:She notic es some feet swelling. S he has not been wearing her compression stockings but notices swelling improves when she does wear them Vidal Rowe Cardiology:Encourage d patient to purchase a blood pressure cuff and begin checking blood pressures at home. B P today 161/81 P rior BP: 156/92 (02/21/2023) Labs Reviewed: C reat: 0.76 (10/02/2012) C hol: 198 (10/02/2012) LDL: 114 (10/02/2012) Her updated medication list for this problem includes: Metoprolol Tartrate 25 Mg Tablet (Metoprolol tartrate) ..... Take 1 tablet by mouth twice daily Amlodipine 5 Mg Tablet (Amlodipine) ..... Take 1 tablet by mouth once daily Losartan 50 Mg Tablet (Losartan) ..... Take 1 tablet by mouth once daily Vidal Jae Cardiology:10/2022 Ca th was normal with no blockages. EF 60% C ontinues on Ranexa Vidal Rowe Cardiology: E ffort related SOB stable. Willi Linn MD Cardiology: W eight loss advised. Willi Linn MD Cardiology: B ilateral GSV insufficiency by doppler 04/2022. Advised use of compression stockings. Willi Linn MD Cardiology: C ontinues on fenofibrate. Willi Linn MD Cardiology: I mproved on ranexa. Likely secondary to microvascular disease. Willi Linn MD Cardiology: B P elevated today. Patient reports better controlled BPs at home. Advised routine home monitoring and dietary sodium restriction. Willi Linn MD Cardiology:lifestyle modificatio n encouraged [employer] [facility] Cardiology:remains o n fenofibrate H er updated medication list for this problem includes: Fenofibrate Nanocrystallized 145 Mg Tablet (Fenofibrate nanocrystallized) ..... Take 1 tablet once a day [employer] [facility] Cardiology:BP 160/88 today P atient reports controlled at home. Have asked her to monitor and bring readings to next visit W ill adjust meds if needed at upcoming f/u. T he following medications were removed from the medication list: Hydrochlorothiazide 12.5 Mg Capsule (Hydrochlorothiazide) ..... 1 tablet once a day Her updated medication list for this problem includes: Amlodipine 5 Mg Tablet (Amlodipine) ..... Take 1 tablet by mouth once daily Metoprolol Tartrate 25 Mg Tablet (Metoprolol tartrate) ..... Take 1 tablet by mouth twice daily Losartan 50 Mg Tablet (Losartan) ..... Take 1 tablet by mouth once daily [employer] [facility] Cardiology:Atypical may be secondary to stress. She however, continues to have issues and has risk factors for micorvascular angina. Will trial ranexa and have her return in 3 mos or sooner if needed. Recent cath showed normal coronaries and a normal EF H er updated medication list for this problem includes: Ranexa 500 Mg Tablet Extended Release 12 Hr (Ranolazine) ..... 1 tablet by mouth twice a day take 1 tablet by mouth twice daily for chronic angina Amlodipine 5 Mg Tablet (Amlodipine) ..... Take 1 tablet by mouth once daily Metoprolol Tartrate 25 Mg Tablet (Metoprolol tartrate) ..... Take 1 tablet by mouth twice daily Nitrostat 0.4 Mg Tablet, Sublingual (Nitroglycerin) ..... Tablet under tongue as needed [employer] [facility] Cardiology: W eight loss advised. Willi Linn MD Cardiology: C ontinues on Fenofibrate. Willi Linn MD Cardiology:BP elevat ed today at 140/84. Advised reduced sodium intake and routine monitoring of the blood pressure. We aim for less than 130/80. Willi Linn MD Cardiology: W ill perform R/L cardiac cath Willi Linn MD Cardiology: C ontinues to have chest pains when she walks, continues for 5-10 minutes, then resolves with rest. Also has SOB and nausea with it. Will proceed with cardiac cath Willi Linn MD Cardiology: W eight loss advised. Willi Linn MD Cardiology:Continues to use comp ression stockings. Willi Linn MD Cardiology:Blood pressure contro l is satisfactory. Willi Linn MD Cardiology: C ontinues on Fenofibrate. Willi Linn MD Cardiology:Occasionchani zazuetay gets pressure in her chest when she is upset. Also has associated symptoms of SOB and nausea. CP resolves after sitting down for a while. Stress test from 08/14/2022 showed EF of 60% and a large fixed inferior wall defect. If her symptoms persist, cardiac cath would be the next step. I have discussed this with the patient and she will let us know. Willi Linn MD Cardiology:Complaini ng of persistent fatigue, even on days she does not exert herself. Also complaining of SOB and chest pressure. Will check stress test regadenoson Radha Lazo Cardiology: P t complains of intermittent chest pressure. Occurs throughout the day and at night, occasionally wakes her up. If she feels it, she reduces how much she eats and she feels better. Also complaining of SOB and fatigue. We will check stress test regadenoson to rule out ischemic causes. O n nitroglycerin as needed. Continues on daily aspirin Radha Lazo Cardiology: E ffort-related SOB, likely multifactorial related to weight and deconditioning. Echo showed normal EF of 55%. PFT showed moderate neuromuscular disease. She is experiencing fatigue and chest pressure as well. We will check stress test regadenoson to rule out ischemic causes. Radha Lazo Cardiology: W eight loss advised. Willi Linn MD Cardiology: C ontinues on Fenofibrate. Last LDL 03/2022 was 63. W ill obtain labwork from PCP;s office Willi Linn MD Cardiology:BP elevat ed today at 146/79. Advised reduced sodium intake and routine monitoring of the blood pressure. We aim for less than 130/80. Willi Linn MD Cardiology: W eight loss advised. Radha Lazo Cardiology: C ontinues on Fenofibrate. Last LDL 03/2022 was 63. Radha Lazo Cardiology: E ffort-related SOB, likely multifactorial related to weight and deconditioning. She also just recovered from Covid which is exacerbating her SOB. ProBNP was 325. Echo showed normal EF of 55%. PFTs to be done tomorrow. Radha Mendozalizbeth Cardiology: C hest pain free. On nitroglycerin as needed. Continues on daily aspirin Radha Lazo Cardiology:Continues to have intermittent leg swelling bilaterally. Advised the use of compression stockings to ease her swelling. Willi Linn MD Cardiology: B lood pressure elevated at 151/91. Advised reduced sodium intake and routine monitoring of the blood pressure. We aim for less than 130/80. W ill increase her Losartan to 50 mg daily Willi Linn MD Cardiology: C ontinues on Fenofibrate.Last LDL 03/2022 was 63. Willi Linn MD Cardiology: W eight loss advised. Willi Linn MD Cardiology: B LE swelling off and on. Likely venous insufficiency. Will evaluate with a venous reflux study. Symptoms began before starting amlodipine. Advised dietary sodium restriction. Willi Linn MD Cardiology: E ffort-related SOB, likely multifactorial related to weight and deconditioning, when chasing her grandkids or doing housework. Will check pBNP. Last echo in 2020 showed normal LVF. Will recheck echo and PFTs. Willi Linn MD Cardiology: B lood pressure control is satisfactory. Willi Linn MD Cardiology: C ontinues on Fenofibrate. Will recheck lipid panel. Willi Linn MD Cardiology: I mproved with amlodipine. Patient underwent cardiac cath on 12/29/2020 showing normal coronaries. On nitroglycerin as needed. Willi Linn MD Cardiology:Continues on Fenofibrate. Willi Linn MD Cardiology:BP is casey vated at 148/80. Advised reduced dietary sodium intake, routine blood pressure monitoring, and implementing an exercise regimen for weight loss. Willi Linn MD Cardiology:Patient u nderwent cardiac cath on 12/29/2020 showing normal coronaries. On nitroglycerin as needed. Willi Linn MD Cardiology:Leg swell ing after starting on Imdur. Will discontinue Imdur. Start on Ranexa 500 mg twice daily. Willi Linn MD Cardiology follow up :Effort related diaphoresis. Her stress test last year was normal and she was reassured. Willi Linn MD Cardiology follow up :Weight loss advised. Willi Linn MD Cardiology follow up :Seen on previous CT. Further management as per yourself. Willi Linn MD Cardiology follow up :Unable to tolerate CPAP. Recommend antisnore nose clips. Willi Linn MD Cardiology follow up :Continues on Fenofibrate. Willi Linn MD Cardiology follow up :Blood pressure control is satisfactory. On Metoprolol and Losartan. Willi Linn MD Cardiology follow up :Reports numbness in the L arm and face during episodes of chest pain. Etiology unknown. Will schedule cath. Willi Linn MD Cardiology follow up :Resolved. Her most recent echo and chest xray were normal. Willi Linn MD Cardiology follow up :Continues on HCTZ. Willi Linn MD Cardiology follow up :Carotid doppler today was normal. Willi Linn MD Cardiology follow up :Pt has episodes of intermittent chest pain throughout both sides of the chest. Echo today shows normal left ventricular systolic function. Left ventricular ejection fraction is measured at 55 %. Will proceed with cardiac cath. Willi Linn MD Cardiology Follow up :Seen on recent CT. She would likely benefit from repeat CT in 6 months. Further management as per yourself. Mauro Plata Cardiology Follow up :Carotid doppler 2017 was normal. Will repeat doppler. Mauro Plata Cardiology Follow up :Continues on Fenofibrate. Mauro Plata Cardiology Follow up :Blood pressure control is satisfactory. Mauro Plata Cardiology Follow up :No recurrence. Her treadmill stress test showed no evidence of ischemia but reduced effort tolerance due to shortness of breath. Mauro Plata Cardiology follow up :Weight loss advised. Patient interested in weight loss pills. Advised to follow up with your office. Willi Linn MD Cardiology follow up :Unable to tolerate CPAP. Recommend antisnore nose clips. Willi Linn MD Cardiology follow up :Continues on Fenofibrate. It appears her Simvastatin was discontinued for unknown reasons. We await the lab results from your office. Willi Linn MD Cardiology follow up :Effort related diaphoresis. Denies of any chest pain or shortness of breath. Her stress test last year was normal and she was reassured. Willi Linn MD Cardiology follow up :Resolved. Her most recent echo and chest xray were normal. The patient has been reassured. Willi Linn MD Cardiology follow up :Blood pressure control is satisfactory. Willi Linn MD Cardiology:Insurance denied Protonix. Will start Omeprazole. Birdie Weiner NP Cardiology:Added HCTZ. Birdie elizabeth NP Cardiology:Check chest xray toda y. Birdie Weiner NP Cardiology:Not at goal. Will add HCTZ. Birdie Weiner NP [facility] Follow up :Weight loss advised. Discussed reducing food intake by 1/3 for weight loss. Willi Linn MD [facility] Follow up :Not on CPAP. Did not complete studies. Willi Linn MD [facility] Follow up :Improved on Pantoprazole which she continues. Willi Linn MD [facility] Follow up :Blood pressure stable. Continues on Losartan and Metoprolol. Willi Linn MD [facility] Follow up :Was previously on Lipitor but was discontinued due to muscle pain and leg cramps. I have changed her to Simvastatin 20mg at night. Willi Linn MD [facility] Follow up :Since discharge, no recurrence of symptoms. Stress test was normal. She continues on ASA 81mg daily Willi Lnin MD [facility] Follow up:We ight loss advised. Willi Linn MD [facility] Follow up:She feels that she would not be able to tolerate a CPAP. Willi Linn MD [facility] Follow up:New onset of symptoms with a faint left carotid bruit. WIll check a carotid doppler. She's on ASA 81 mg daily. Willi Linn MD [facility] Follow up:BP control has improved with the addition of Losartan to her beta susan, which she will continue to take. Willi Linn MD [facility] Follow up:No recurrence since discharge from the hospital. Willi Linn MD [facility] Follow up:Possible venous insufficiency. Will arrange for her to have a venous doppler. Willi Linn MD Cardiology:Symptoms have resolved, her BLAINE was fine. Willi Linn MD Cardiology:She kayla nues to have this atypical pain, likely muscloskeletal as the stress test is normal and the echo showed no wall motion abnormality. She continues on tramadol for pain as needed. Willi Linn MD Cardiology:BP contro l is satisfactory of metoprolol succinate 50 mg once daily. Willi Linn MD Cardiology:Improved. Her recent PFTs were normal. Willi Linn MD Cardiology:Weight loss advised. Willi Linn MD Cardiology:BP elevat ed today but is usually within normal range. She is on metoprolol which she continues. Willi Linn MD Cardiology:Weight loss adivsed. Willi Linn MD Cardiology:BP contro l satisfactory. She will continue on Metoprolol Succinate 50 mg once daily Willi Linn MD Cardiology:Effort re lated SOB the etiology of which is unclear. The stress test was normal. Will arrange fo ehr to have an echo and PFT's. If symptoms persist, she will requrie a L/R Cath. Willi Linn MD Date Name Lipoprotein (a) PROTHROMBIN TIME WIT H INR LIPID PANEL CBC (INCLUDES DIFF/P LT) BASIC METABOLIC PANE L W/EGFR Cardiac Cath - L/R- SLHV Stress Regadenoson DLCO - 73350 FRC - 99826 FVC - 62882 LIPID PANEL Venous Doppler Bilat eral LE - Reflux Complete Echo PROBNP, N TERMINAL HEMOGLOBIN A1c COMPREHENSIVE METABO LIC PANEL, W/EGFR CBC (H/H, RBC, INDIC ES, WBC, PLT) Cardiac Cath - L/R - GC Complete Echo X-Ray, Chest - Routi ne Complete Echo Carotid Duplex Bilat eral Venous Doppler Bilat eral LE - Reflux Arterial Duplex Bi-L ower EX Complete Echo DLCO - 48782 FRC - 78417 FVC - 04989 Holter Monitor 24 Hr Sleep Study Home DLCO - 57604 FRC - 15961 FVC - 92712 STR - Adenosine HISTORY OF PROCEDURES Procedure Date Procedure Name Provider Procedure Notes S tatus Complex e/m visit add on Willi Linn MD completed EKG Willi Linn MD complet ed Complex e/m visit add on Willi Linn MD completed EKG Willi Linn MD complet ed EKG Willi Linn MD complet ed EKG Willi Linn MD complet ed EKG Willi Linn MD complet ed EKG Willi Linn MD complet ed EKG Willi Linn MD complet ed Spirometry Willi Linn MD complet ed FVC / MVV with bronchodilator - 34424 Willi Linn MD completed BLOOD COUNT HEMOGLOBIN Willi Linn MD completed FRC - 90644 Willi Linn MD comple carolyn SpO2 w/o 6min walk/titration Willi Linn MD completed SVC - 90756 Willi Linn MD comple carolyn DLCO - 66284 Willi Linn MD compl eted EKG Willi Linn MD complet ed EKG Willi Linn MD complet ed EKG Willi Linn MD complet ed EKG Willi Linn MD complet ed EKG Willi Linn MD complet ed EKG Willi Linn MD complet ed EKG Willi Linn MD complet ed EKG Willi Linn MD complet ed EKG Willi Linn MD complet ed SNOMED-CT: [id number] Current Medications Documented Willi Linn MD completed EKG Willi Linn MD complet ed SNOMED-CT: [id number] Current Medications Documented Willi Linn MD completed EKG Willi Linn MD complet ed SNOMED-CT: [id number] 525261 Current Medications Documented Willi Linn MD completed SNOMED-CT: [id number] Physical Exam, Performed: Pulse Exam of Foot Willi Linn MD completed EKG Willi Linn MD complet ed SNOMED-CT: [id number] 138272 Current Medications Documented Willi Linn MD completed Stress EKG Arnel Mercer MD completed Regadenoson, 4 units Willi Linn MD completed Cardiolite, 2 units Willi Linn MD completed SPECT Images Stephany Mccormick MD complet ed Holter, 24 or 48 Willi Linn MD c ompleted BLOOD COUNT HEMOGLOBIN Willi Linn MD completed FVC - 23744 Willi Linn MD comple carolyn FRC - 03007 Willi Linn MD comple carolyn DLCO - 96941 Willi Linn MD compl eted EKG Willi Linn MD complet ed SNOMED-CT: [id number] 169316 Current Medications Documented Willi Linn MD completed
--- OUTSIDE RECORDS SUMMARY | 2024-11-04 11:45 | XMS_ITS | Clinical Summary ---
Author Organization [facility] Address [address] [place] [address] Care Team Providers Care Bale Opener Name Role Phone Unavailable Primary Care Provider Unavailabl e Source Comments [facility],non-owned Affiliates and Associated Physician Practices is amultiple site organization consisting of ambulatory clinics and hospital sitesin [place], [place], [place] and [place]. This disclosure is being madepursuant to the Care Everywhere program and may not contain all information available regarding this patient. Last updated 18.[facility] Allergies Active Allergy Reactions Criticality Noted Date Comments Sulfa Drugs Rash Medium 03/22/2020 Medications * Be aware that medications may not be up to date on this document. Alwaysverify current medications with the patient. Medication Sig Dispensed Refills Start Date End Date Status clotrimazole (LOTRIMIN AF) 1 % cream Apply 1 Units to affected area once daily as needed Active estradiol (ESTRACE) 1 MG tablet Take 1 tablet by mouth once daily Active metoprolol tartrate (LOPRESSOR) 50 MG tablet Take 1 tablet by mouth 2 times daily Active PARoxetine (PAXIL) 40 MG tablet Take 1 tablet by mouth once daily Active vitamin D, ergocalciferol, (DRISDOL) 1.25 MG (33679 UT) capsule Take 50,000 Units by mouth every 7 days 03/13/2020 Active fenofibrate (TRICOR) 145 MG tablet Take 145 mg by mouth once daily 02/12/2020 Active hydroCHLOROthiazide (MICROZIDE) 12.5 MG capsule Take 1 capsule by mouth once daily as needed Active losartan (COZAAR) 25 MG tablet Take 25 mg by mouth once daily 02/13/2020 Active omeprazole (PRILOSEC) 40 MG capsule Take 40 mg by mouth once daily 05/12/2019 Active oxybutynin CR 24hr (DITROPAN-XL) 10 MG tablet Take 1 tablet by mouth once daily Active traMADol (ULTRAM) 50 MG tablet Take 1 tablet by mouth once daily as needed Active traZODone (DESYREL) 100 MG tablet Take 1 tablet by mouth at bedtime 03/13/2020 Active Social History Tobacco Use Types Packs/Day Years Used Date Smoking Tobacco: Never Smokeless Tobacco: Never Alcohol Use Standard Drinks/Week Comments Never 0 (1 standard drink = 0.6 oz pur e alcohol) AUDIT-C Answer Date Recorded Q1: How often do you have a drink containing alc ohol? Never 03/22/2020 Average Number of Drinks Not on file 020 Frequency of Binge Drinking Not on file 03/06 Sex and Gender Information Value Date Recorded Sex Assigned at Not on file Gender Identity Not on file Sexual Orientation Not on file Last Filed Vital Signs Vital Sign Reading Time Taken Comments Blood Pressure 148/75 03/24/2020 9:15 AM CDT Pulse 54 03/24/2020 9:15 AM CDT Temperature 37.1 C (98.7 F) 03/24/2020 9:15 AM CDT Respiratory Rate 18 03/22/2020 8:11 AM CDT Oxygen Saturation 99% 03/24/2020 9:15 AM CDT Inhaled Oxygen Concentration - - Weight 107.3 kg (236 lb 9.6 oz) 03/22/2020 8:11 AM CDT Height 157.5 cm (5' 2 ) 03/22/2020 8:11 AM CDT Body Mass Index 43.27 03/22/2020 8:11 AM CDT Plan of Treatment Health Maintenance Due Date Last Done Comments COLOGUARD (AGES 45-75) - COL ON CA SCREENING 1962 COLON MONITORING 1962 COLONOSCOPY - COLON CA SCREENING 1962 CT COLONOGRAPHY - COLON CA SCREENING 1962 Colorectal Cancer Screening 1962 FIT - COLON CA SCREENING 1962 FLEX SIG - COLON CA SCREENING 1962 LIPID TESTING 1962 MAMMOGRAM 1962 PAP SMEAR 1962 HIV SCREENING 1977 HEPATITIS C SCREENING 05/23/1980 DTAP/TDAP/TD VACCINES (1 - Tdap) 1981 PNEUMOCOCCAL VACCINE 50+ (1 of 1 - PCV) 2012 ZOSTER VACCINE (1 of 2) 2012 SCREENING FOR DIABETES 03/22/2020 Respiratory Syncytial Virus (RSV) Vaccine Pt: or over 60 yrs (1 - Risk 60-74 years 1-dose series) 2022 COVID-19 VACCINE (1 - 2023-2 5 season) 2024 INFLUENZA VACCINE (#1) 2024 DEPRESSION SCREENING 08/06/2024 HEPATITIS B VACCINE Aged Out No longe r eligible based on patient's age to complete this topic HIB VACCINE Aged Out No longer eligi ble based on patient's age to complete this topic HPV VACCINE Aged Out No longer eligi ble based on patient's age to complete this topic MENINGOCOCCAL (Group B) VACC INE SHARED DECISION-MAKING Aged Out No longer eligibl e based on patient's age to complete this topic MENINGOCOCCAL GROUPS A/C/Y/W VACCINE Aged Out No longer eligible b ased on patient's age to complete this topic PNEUMOCOCCAL VACCINE Aged Out No long er eligible based on patient's age to complete this topic
--- OUTSIDE RECORDS SUMMARY | 2024-11-04 11:45 | XMS_ITS | Continuity of Care Document ---
Author Organization [facility] Address [address] [place] [address] [address] [place] [address] Phone Care Team Providers Care After School Counselor Name Role Phone Doisy, Edward Unavailable Unavailable Advance Directives Directive Yes / No Effective Date File Name No Information Encounters Encounter Description Practice Location Reason(s) For Visit Diagnoses Date Provider Providers Copied on Encounter [facility], [address], [place], [place], [id number], [place] tel:[phone] [facility] No Information Dec-0 6-200 0 Doisy Edward. [address] , [address], [place], [address], [place]. tel:[phone] Family History Family Member Type Diagnosis Age At Onset No Information Payers Payer name Insurance type Covered constitution party ID Authoriza tion(s) No Information Social History Type Description Quantity Date Captured Comments Sex Female Smoking Status No Information Chief Complaint And Reason For Visit No Information Reason For Referral Reason For Referral No Information History Of Present Illness Encounter Date Complaint History Of Prese nt Illness No Information Functional Status Date Functional Assessmen t No Information Instructions Date Instruction Additional Infor mation No Information Assessments Type Assessment Date No Information Patient Care Teams Name Effective Dates (start - stop) Status Members No Information
== END 2024-11-04 10:30 | disposition home or self-care (01) ==
PROVIDERS: PCP Physician Assistant; Visit Provider Physician Assistant
DX: R05.3 Chronic cough (principal)
CPT/HCPCS: 71046

== ENCOUNTER 2024-12-21 12:22 | Emergency (ER) | payer OTHER, SELFPAY ==
--- NOTE | 2024-12-21 12:54 | ED.URI ---
HPI - URI/Sore Throat General Chief Complaint: Upper Respiratory Infection Stated Complaint: Sinus Time Seen by Provider: 12/21/24 12:54 Source: patient, RN notes reviewed and old records reviewed Mode of arrival: ambulatory Limitations: no limitations History of Present Illness HPI Narrative: 64 year old female who presents to [facility] care with complaints of sore throat, bilateral ear pain,cough with expectoration of green phlegm, frontal headache, clear nasal drainage since Sunday. Patient reports that she has been taking some OTC cough and cold medication withour improvement in her symptoms. MD elicited complaint: cough (productive), sore throat, rhinorrhea, nasal congestion and other (headache) Onset (ago): day(s) (3) Consistency: constant Severity: moderate Description of mucous: green (phlegm, clear nasal drainage) Able to tolerate fluids by mouth: Yes Treatments prior to arrival: cold medicine Related Data Home Medications Medication Instructions Recorded Confirmed Last Taken Type amlodipine 5 mg tablet mg 12/21/24 Unknown History clotrimazole 1 % topical cream applic topical 12/21/24 Unknown History dicyclomine 10 mg capsule mg 12/21/24 Unknown History famotidine 40 mg tablet mg 12/21/24 Unknown History fenofibrate nanocrystallized 145 mg PO 12/21/24 Unknown History mg tablet hydroxyzine HCl 25 mg tablet mg 12/21/24 Unknown History loratadine 10 mg tablet mg 12/21/24 Unknown History losartan 50 mg tablet mg 12/21/24 Unknown History metoprolol tartrate 25 mg tablet mg 12/21/24 Unknown History nitroglycerin 0.4 mg sublingual mg 12/21/24 Unknown History tablet omeprazole 40 mg capsule,delayed mg 12/21/24 Unknown History release oxybutynin chloride 10 mg mg PO 12/21/24 Unknown History tablet,extended release 24 hr paroxetine HCl 40 mg tablet mg PO 12/21/24 Unknown History ranolazine 500 mg tablet,extended mg PO 12/21/24 Unknown History release,12 hr trazodone 100 mg tablet mg 12/21/24 Unknown History triamcinolone acetonide 0.1 % applic topical 12/21/24 Unknown History topical cream Allergies Allergy/AdvReac Type Severity Reaction Status Date / Time Sulfa (Sulfonamide Allergy Intermediate N/V, HOT, Unverified 12/21/24 13:08 Antibiotics) CLAMMY Review of Systems Review of Systems: CONSTITUTIONAL: Reports malaise, no chills, sweats, or fever. EYES: Denies visual changes, redness, or discharge. ENT: Reports rhinorrhea, congestion, sinus pain, otalgia and sore throat. CARDIOVASCULAR: Denies chest pain, palpitations, or edema. RESPIRATORY: Reports productive cough Reports dyspnea with exertion. GASTROINTESTINAL: Denies abdominal pain, nausea, vomiting, diarrhea SKIN: Denies rash or itching. MUSCULOSKELETAL: Denies myalgia. NEUROLOGIC: Reports headache. All systems reviewed & are unremarkable except as noted in HPI and below PMFSH Past Medical History Medical History (Updated 12/22/24 @ 10:39 by Kirsten Yu NP) Anxiety Arthritis Obesity Kidney stones Hyperlipidemia Hypertension Angina pectoris GERD (gastroesophageal reflux disease) Surgical History Surgical History (Updated 12/22/24 @ 10:25 by Kirsten Yu NP) S/P lumpectomy, left breast benign History of cholecystectomy History of tonsillectomy Social History Social History (Updated 12/22/24 @ 10:23 by Kirsten Yu NP) Smoking status: Never smoker Alcohol intake: current Alcohol use details: rare Substance use type: does not use Living arrangements: with family Gender identity (if verbalized by the patient): Female Comments At time of signature, agree with nursing past medical, surgical, social and family history. There is no relevant family history pertinent to the presenting complaint Exam Narrative: GENERAL: Well-appearing, well-nourished, and in no acute distress. HEAD: Normocephalic EYES: PERRLA, conjunctivae clear ENT: Nares clear, turbinates edematous and erythematous, clear discharge. Mucous membranes moist. TM pearly devine with dull light reflex bilaterally; no tragal tenderness. Oropharynx erythematous without lesions. Tonsils not present and throat without exudate, no drooling, no hoarseness, no trismus, uvula midline.post nasal drainage NECK: Supple. No lymphadenopathy CHEST: scattered wheezing, breath sounds equal. +wheezing,no rhonchi, rales, or stridor. No respiratory distress, speaks in full sentences.productive cough noted of greenish tinged phlegm SAO2 95% on room air, some SUMNER noted no tachypnea HEART: Regular rate and rhythm. No murmur heard. SKIN: Warm, dry, no rash. NEURO: Alert and oriented x3. PSYCH: Normal mood and affect Course Course Emergency Course: Patient is aware of diagnosis, understands and agrees to treatment plan. Anticipatory guidance given. Patient agrees to follow-up as directed and is aware of reasons to seek care at the emergency department. Portions of this record may have been created with voice recognition software Level of Care: Express Care Visit Vital Signs Vital signs: Vital Signs Temperature 36.7 C 12/21/24 12:55 Pulse Rate 83 12/21/24 12:55 Respiratory Rate 20 12/21/24 12:55 Blood Pressure 128/60 12/21/24 12:55 Pulse Oximetry 95 12/21/24 12:55 Oxygen Delivery Room Air 12/21/24 12:55 Temperature 36.7 C 12/21/24 12:55 Pulse Rate 83 12/21/24 12:55 Respiratory Rate 20 12/21/24 12:55 Blood Pressure 128/60 12/21/24 12:55 Pulse Oximetry 95 12/21/24 12:55 Oxygen Delivery Room Air 12/21/24 12:55 Reviewed MDM - URI/Sore Throat MDM Narrative Medical decision making narrative: Differential diagnosis considered: Stephenson virus, strep pharyngitis, allergic rhinitis, upper respiratory tract infection, sinusitis, rhinosinusitis, nasopharyngitis. viral pharyngitis, otitis media, otitis externa, pneumonia, bronchitis, viral cough syndrome, viral syndrome, and influenza. Exam findings show no acute concerns or changes; patient is non-toxic appearing and is in no distress. Patient is appropriate for outpatient treatment and follow-up. Differential Diagnosis Differential diagnosis: Likely upper respiratory infection, sinusitis, viral infection, bronchitis, influenza, pharyngitis and other (strep pharyngitis,COVID) Medical Records Attestation: I reviewed the patient's medical records. Lab Data Attestation: I reviewed the patient's lab results. Lab results narrative: COVID antigen negative, Influenza A negative, Influenza B negative, strep screen negative, strep culture sent Labs: Lab Results 12/21/24 12/21/24 Range/Units 12:59 13:11 POC Influenza A Ag Negative (Negative) POC Influenza B Ag Negative (Negative) POC SARS CoV-2 Ag Negative (Negative) POC Grp A Strep Screen Negative (Negative) reviewed Critical Care Time Critical Care Time Critical Care Time: No Discharge Plan Discharge Clinical Impression: Bronchitis Patient Disposition: Home Condition: Stable Instructions: Antibiotic Form, Acute Bronchitis (ED) Additional Instructions: Increase fluids especially juices and water [id number] cough and cold medicine of your choice for your symptoms Zyrtec Claritin or Ping daily include Coricidin brand decongestant Steroids as directed--take with food heat to the face 20-30 minutes 4-6 times a day for pain Salt water gargles, throat lozenges or throat sprays as desired Antibiotic as directed--finished the medication Tylenol or ibuprofen for any fever pain If your symptoms persist, change or worsen significantly before you can contact your personal physician then please, without delay, go to the emergency department for further evaluation. Follow-up with PCP in 7-10 days or sooner if needed Follow up with PCP soon in regards to your blood pressure which is elevated above threshold for referral. Blood pressure above 120/80 may indicate pre-hypertension. Minimal elevation at 128/60 Patient Language: New Zealander Prescriptions: New albuterol sulfate [Ventolin HFA] 90 mcg/actuation HFA aerosol inhaler 2 puff inhalation QID PRN (Reason: shortness of breath or wheezing) Qty: 6.7 0RF Rx Instructions: use as needed for shortness of breath and cough prednisone 20 mg tablet 40 mg PO DAILY 5 Days Qty: 10 0RF Rx Instructions: take with food take in the mornings ok to start today so long as it is before 5 pm azithromycin 250 mg tablet See Rx Instructions .ROUTE .COMPLEX Qty: 6 0RF Rx Instructions: For 250 mg dose pack: take 500 mg today (day 1), then 250 mg for 4 days (days 2-5) No Action losartan 50 mg tablet oxybutynin chloride 10 mg tablet extended release 24hr PO famotidine 40 mg tablet amlodipine 5 mg tablet omeprazole 40 mg capsule,delayed release(DR/EC) triamcinolone acetonide 0.1 % cream TOPICAL trazodone 100 mg tablet nitroglycerin 0.4 mg tablet, sublingual hydroxyzine HCl 25 mg tablet paroxetine HCl 40 mg tablet PO clotrimazole 1 % cream TOPICAL dicyclomine 10 mg capsule loratadine 10 mg tablet metoprolol tartrate 25 mg tablet ranolazine 500 mg tablet extended release 12 hr PO fenofibrate nanocrystallized 145 mg tablet PO Follow-up/Referrals: Tee,JAMIL Robert [Primary Care Provider] - Time of Disposition: 13:16 Quality [place] Coma Scale Eyes: Open Verbal: Oriented and Alert Motor: Follows Commands Phong Coma Total Score: 15
[2024-12-21 12:55] VITALS: BP 128/60; PULSE 83; RESP 20; TEMP 36.7; O2SAT 95
[2024-12-21 13:01] LABS: EDSTREPNEGPOS1 Negative (Negative)
[2024-12-21 13:13] LABS: EDCOVIDSCREEN Negative (Negative); EDINFLUASCREEN Negative (Negative); EDINFLUBSCREEN Negative (Negative)
== END 2024-12-21 13:20 | disposition home or self-care (01) ==
PROVIDERS: Emergency Provider Registered Nurse; PCP Physician Assistant
DX: J40 Bronchitis, not specified as acute or chronic (principal); Z20.822 Contact with and (suspected) exposure to COVID-19; I10 Essential (primary) hypertension; E78.5 Hyperlipidemia, unspecified; I20.9 Angina pectoris, unspecified; K21.9 Gastro-esophageal reflux disease without esophagitis; E66.9 Obesity, unspecified; Z68.41 Body mass index [BMI] 40.0-44.9, adult; M19.90 Unspecified osteoarthritis, unspecified site
CPT/HCPCS: 87081; 87426; 87804; 87880; 99203; G0463

== ENCOUNTER 2025-01-13 12:55 | Outpatient (CLI) | payer OTHER, SELFPAY ==
--- NOTE | ~2025-01-13 | XR_ITS ---
EXAMINATION: XR chest 2V 01/13/2025 13:45 INDICATION: Acute lower respiratory infection PROCEDURE: 2 view chest COMPARISON: 11/04/2024 FINDINGS: The lungs are clear. There is calcified granuloma right middle lobe. The cardiomediastinal silhouette is within normal limits. There are no pleural effusions. There is no pneumothorax suspec carolyn. IMPRESSION: 1: NO ACUTE CARDIOPULMONARY DISEASE. Reviewed, dictated and finalized at location B.
--- NOTE | ~2025-01-13 | US_ITS ---
Pelvic ultrasound. Clinical History: Pelvic pain Technique: Realtime transabdominal and transvaginal scanning of the pelvis was performed. Color flow Doppler and Doppler spectral analysis were performed. Findings: The uterus is absent, compatible prior hysterectomy. Noted ovary seen. No adnexal mass seen. There is no evidence of free fluid in the cul de sac. Impression: No significant abnormality seen. Status post hysterectomy. Neither ovary visualized. Reviewed, dictated and finalized at location . Impression: No significant abnormality seen. Status post hysterectomy. Neither ovary visual ized.
--- OUTSIDE RECORDS SUMMARY | 2025-01-13 14:00 | XMS_ITS | Continuity of Care Document ---
Author Organization [facility] Address [address] [place] [address] [address] [place] [address] Phone Care Team Providers Care Telecommunications Clerk Name Role Phone Doisy, Edward Unavailable Unavailable Advance Directives Directive Yes / No Effective Date File Name No Information Encounters Encounter Description Practice Location Reason(s) For Visit Diagnoses Date Provider Providers Copied on Encounter [facility], [address], [place], [place], [id number], [place] tel:[phone] [facility] No Information Dec-0 6-200 0 Doisy Edward. [address], [place], [address], [place]. tel:[phone] Family History Family Member Type Diagnosis Age At Onset No Information Payers Payer name Insurance type Covered democrat ID Authoriza tion(s) No Information Social History [...]
--- OUTSIDE RECORDS SUMMARY | 2025-01-13 14:00 | XMS_ITS | CONTINUITY OF CARE DOCUMENT ---
Author Name darvin, darvin Address Unknown Organization [facility] Address [address] [place] [address] Phone [phone] Care Team Providers Care Logistics Support Name Role Phone Kaveh MILLER, Willi Unavailable BRITT MILLER, PATIENCE Unavailable PATIENCE DE LA TORRE MD Unavailable [phone] PROBLEMS Condition Status Date Provider Notes Angina [...] In-person encounter Office Visit Willi Linn MD [facility] - In-person encounter Office Visit Willi Linn MD [facility] - In-person encounter Office Visit Willi Linn MD [facility] - In-person encounter Office Visit Willi Linn MD [facility] Leg EdemaChest pain - nl cors by cath 10/2022 - In-person encounter Office Visit Willi Linn MD [facility] - In-person encounter Office Visit Willi Linn MD [facility] - In-person encounter Office Visit Willi Linn MD [facility] - In-person encounter Office Visit Willi Linn MD [facility] Fatigue - In-person encounter Office Visit Willi Linn MD [facility] Venous insufficiency - In-person encounter Office Visit Willi Linn MD [facility] - In-person encounter Office Visit Willi Linn MD [facility] - In-person encounter Office Visit Willi Linn MD [facility] - In-person encounter Office Visit Willi Linn MD [facility] Chest pain - nl cors by cath 10/2022Lung nodule - In-person encounter Office Visit Willi Linn MD [facility] Family history of CADChest pain-type to be determinedLeg pain, right? PVDOSA, unable to tolerate CPAPDiaphoresis - In-person encounter Office Visit Efraín Blanc MD [facility] - In-person encounter Office Visit Willi Linn MD [facility] GERDHyperlipidemia - In-person encounter Office Visit Willi Linn MD [facility] Family History of Hyperlipidemia:Family history of CADOther symptoms involving cardiovascular systemNumbness and tingling sensation of skinOSA, unable to tolerate CPAPCarotid bruit, left - In-person encounter Office Visit Willi Linn MD [facility] - In-person encounter Office Visit Willi Linn MD [facility] - In-person encounter Office Visit Willi Linn MD [facility] - In-person encounter Office Visit Willi Linn MD [facility] HYPERTENSIONSOBObesity - In-person encounter Office Visit [facility] Office - In-person encounter Office Visit [facility] Office - In-person encounter Office Visit [facility] Office - In-person encounter Office Visit [facility] Office - In-person encounter Office Visit [facility] Office VITAL SIGNS Date Observation Value Provider Body Mass Index (Ratio) 44.81 kg/m2 Garry Linn MD blood pressure, cuff size large Ke rri Josephuemageder blood pressure, diastolic 80 mm[Hg] Ke rri Josephuenelisaelder blood pressure, systolic 126 mm[Hg] Robbin ri [facility] saturation, oximetry 94 % Ginette [facility] pulse rate 82 /min Ginette Matt weight [...] Alon y blood pressure, cuff size regular Velasquez rret oxygen saturation, oximetry 96 % respiratory [...] Rocky Daysi blood pressure, diastolic 88 mm[Hg] [facility] blood pressure, systolic 160 mm[Hg] [facility] blood pressure, diastolic 88 mm[Hg] [facility] blood pressure, systolic 160 mm[Hg] [facility] pulse rate 53 /min Birdie Amador blood [...] rosenberg pulse rate 61 /min Ginette Gutierrez [facility] weight E&M 236 [lb_av] Ginette Gutierrez [facility] height E&M 62 [in_i] Ginette Matt riggins [...] Salter blood pressure, diastolic 80 mm[Hg] Li nkLogkaren blood pressure, systolic 146 mm[Hg] Teena kLogkaren [...] Felton Richter blood pressure, systolic 130 mm[Hg] Jana Richter pulse rate 60 /min Abhinav alexander [...] Jeri Med blood pressure, diastolic 88 mm[Hg] Il dolores Med blood pressure, systolic 142 mm[Hg] [...] beta, serum, point, quantitative, calculated 114 mg/dL [facility] cholesterol, serum 198 mg/dL Karen Howe 7 creatinine, serum 0.76 mg/dL Karen Howe 7 potassium, serum 4.2 mmol/L [facility] sodium, serum 139 mmol/L [facility] platelet count 293 10*3/mm3 [facility] 7 hematocrit, blood 42.6 % [...] 1 tablet by mouth once daily 04/30 Ibis Reddy RN amlodipine 5 mg tablet completed Take one [...] once a day 08/26 - 11/22 Ibis HOWELLP Zyrtec 10 mg capsule active as needed [...] 81 MG TBEC active once a day [facility] [place] [place] behzad Linn MD Paxil 40 mg tablet [...] Tavarez drug use no Ibis Ventimig lee [employer] alcohol use no Ibis Ventimig lee [employer] smoking status Never smoker Birdie Amador social [...] Willi Linn MD alcohol use no Ginette Gutirerez lder smoking status Never smoker Ginette Nguyen [...] Willi Linn MD smoking status Never smoker [facility] FUNCTIONAL STATUS Date Observation Value Provider HRA, [...] Payer name Policy type / Coverage type [facility] [employer] [place] [employer]ICA[employer] (2) Medicaid [id number] ADVANCE DIRECTIVES Name Date DISCUSSED - NO DECISION MADE TREATMENT PLAN Date Name Performer [id number],C, E ffort related SOB stable. Willi Linn MD [id number],C, W eight loss advised. Willi Linn MD [id number],C, B ilateral GSV insufficiency by doppler 04/2022. Advised use of compression stockings. Willi Linn MD [id number],C, C ontinues on fenofibrate. Willi Linn MD [id number],C, I mproved on ranexa. Likely secondary to microvascular disease. Willi Linn MD [id number],C, B P elevated today. Patient reports better controlled BPs at home. Advised routine home monitoring and dietary sodium restriction. Willi Linn MD [id number],C,l ifestyle modification encouraged [employer] [facility] [id number],C,r emains on fenofibrate H er updated medication list for this problem includes: Fenofibrate Nanocrystallized 145 Mg Tablet (Fenofibrate nanocrystallized) ..... Take 1 tablet once a day [employer] [facility] [id number],C,B P 160/88 today P atient reports controlled [...] tablet by mouth once daily [employer] [facility] [id number],C,A typical may be secondary to stress. She [...] Tablet under tongue as needed [employer] [id number],S, W eight loss advised. Willi Linn MD [id number],S, C ontinues on Fenofibrate. Willi Linn MD [id number],C,B P elevated today at 140/84. Advised reduced sodium intake and routine monitoring of the blood pressure. We aim for less than 130/80. Willi Linn MD [id number],C, W ill perform R/L cardiac cath Willi Linn MD [id number],C, C ontinues to have chest pains when she walks, continues for 5-10 minutes, then resolves with rest. Also has SOB and nausea with it. Will proceed with cardiac cath Willi Linn MD [id number],C, W eight loss advised. Willi Linn MD [id number],C,C ontinues to use compression stockings. Willi Linn MD [id number],C,B lood pressure control is satisfactory. Willi Linn MD [id number],C, C ontinues on Fenofibrate. Willi Linn MD [id number],C,O ccasionally gets pressure in her chest when [...] will let us know. Willi Linn MD [id number],C,C omplaining of persistent fatigue, even on days she does not exert herself. Also complaining of SOB and chest pressure. Will check stress test regadenoson aRdha Lazo [id number],S, P t complains of intermittent chest pressure. Occurs throughout the day and at night, occasionally wakes her up. If she feels it, she reduces how much she eats and she feels better. Also complaining of SOB and fatigue. We will check stress test regadenoson to rule out ischemic causes. O n nitroglycerin as needed. Continues on daily aspirin Radha Lazo [id number],C, E ffort-related SOB, likely multifactorial related to weight and deconditioning. Echo showed normal EF of 55%. PFT showed moderate neuromuscular disease. She is experiencing fatigue and chest pressure as well. We will check stress test regadenoson to rule out ischemic causes. Radha Clifton [id number],S, W eight loss advised. Willi Linn MD [id number],C, C ontinues on Fenofibrate. Last LDL 03/2022 was 63. W ill obtain labwork from PCP;s office Willi Linn MD [id number],C,B P elevated today at 146/79. Advised reduced sodium intake and routine monitoring of the blood pressure. We aim for less than 130/80. Willi Linn MD [id number],S, W eight loss advised. Radha Clifton [id number],C, C ontinues on Fenofibrate. Last LDL 03/2022 was 63. Radha Hannagarret [id number],C, E ffort-related SOB, likely multifactorial related to weight and deconditioning. She also just recovered from Covid which is exacerbating her SOB. ProBNP was 325. Echo showed normal EF of 55%. PFTs to be done tomorrow. Radha Clifton [id number],C, C hest pain free. On nitroglycerin as needed. Continues on daily aspirin Radha Lazo [id number],C,C ontinues to have intermittent leg swelling bilaterally. Advised the use of compression stockings to ease her swelling. Willi Linn MD [id number],C, B lood pressure elevated at 151/91. Advised reduced sodium intake and routine monitoring of the blood pressure. We aim for less than 130/80. W ill increase her Losartan to 50 mg daily Willi Linn MD [id number],C, C ontinues on Fenofibrate.Last LDL 03/2022 was 63. Willi Linn MD [id number],S, W eight loss advised. Willi Linn MD [id number],W, B LE swelling off and on. Likely venous insufficiency. Will evaluate with a venous reflux study. Symptoms began before starting amlodipine. Advised dietary sodium restriction. Willi Linn MD [id number],W, E ffort-related SOB, likely multifactorial related to weight and deconditioning, when chasing her grandkids or doing housework. Will check pBNP. Last echo in 2020 showed normal LVF. Will recheck echo and PFTs. Willi Linn MD [id number],S, B lood pressure control is satisfactory. Willi Linn MD [id number],S, C ontinues on Fenofibrate. Will recheck lipid panel. Willi Linn MD [id number],S, I mproved with amlodipine. Patient underwent cardiac cath on 12/29/2020 showing normal coronaries. On nitroglycerin as needed. Willi Linn MD [id number],C,C ontinues on Fenofibrate. Willi Linn MD [id number],C,B P is elevated at 148/80. Advised reduced dietary sodium intake, routine blood pressure monitoring, and implementing an exercise regimen for weight loss. Willi Linn MD [id number],C,P atient underwent cardiac cath on 12/29/2020 showing normal coronaries. On nitroglycerin as needed. Willi Linn MD [id number],C,L eg swelling after starting on Imdur. Will [...] MD Cardiology:lifestyle modificatio n encouraged [employer] [facility] Cardiology:remains o n fenofibrate H er updated medication list for this problem includes: Fenofibrate Nanocrystallized 145 Mg Tablet (Fenofibrate nanocrystallized) ..... Take 1 tablet once a day [employer] [facility] Cardiology:BP 160/88 today P atient reports controlled [...] tablet by mouth once daily [employer] [facility] Cardiology:Atypical may be secondary to stress. She [...] Tablet under tongue as needed Ibis Whitmanvernstacey [facility] Cardiology: W eight loss advised. Willi Linn [...] She continues on ASA 81mg daily Willi Linn MD [facility] Follow up:We ight loss [...] - L/R- [facility] Stress Regadenoson DLCO - 30833 FRC - 14862 FVC - 97407 LIPID PANEL Venous Doppler Bilat eral LE - Reflux Complete Echo PROBNP, N TERMINAL HEMOGLOBIN A1c COMPREHENSIVE METABO LIC PANEL, W/EGFR CBC (H/H, RBC, INDIC ES, WBC, PLT) Cardiac Cath - L/R - GC Complete Echo X-Ray, Chest - Routi ne Complete Echo Carotid Duplex Bilat eral Venous Doppler Bilat eral LE - Reflux Arterial Duplex Bi-L ower EX Complete Echo DLCO - 51795 FRC - 62435 FVC - 42928 Holter Monitor 24 Hr Sleep Study Home DLCO - 28682 FRC - 23183 FVC - 82022 STR - Adenosine HISTORY OF PROCEDURES Procedure [...] ed FVC / MVV with bronchodilator - 80950 Willi Linn MD completed BLOOD COUNT HEMOGLOBIN Willi Linn MD completed FRC - 84166 Willi Linn MD comple carolyn SpO2 w/o 6min walk/titration Willi Linn MD completed SVC - 55697 Willi Linn MD comple carolyn DLCO - 36314 Willi Linn MD compl eted EKG Willi Linn MD complet ed EKG Willi Linn MD complet ed EKG Willi Linn MD complet ed EKG Willi Linn MD complet ed EKG Willi Linn MD complet ed EKG Willi Linn MD complet ed EKG Willi Linn MD complet ed EKG Willi Linn MD complet ed EKG Willi Linn MD complet ed SNOMED-CT: 575109085 297519 Current Medications Documented Willi Linn MD completed EKG Willi Linn MD complet ed SNOMED-CT: [id number] 139703 Current Medications Documented Willi Linn MD completed EKG Willi Linn MD complet ed SNOMED-CT: 664629921 769221 Current Medications Documented Willi Linn MD completed SNOMED-CT: 68107047 Physical Exam, Performed: Pulse Exam of Foot Willi Linn MD completed EKG Willi Linn MD complet ed SNOMED-CT: 696144046 173351 Current Medications Documented Willi Linn MD completed Stress EKG Arnel Mercer MD completed Regadenoson, 4 units Willi Linn MD completed Cardiolite, 2 units Willi Linn MD completed SPECT Images Stephany Mccormick MD complet ed Holter, 24 or 48 Willi Linn MD c ompleted BLOOD COUNT HEMOGLOBIN Willi Linn MD completed FVC - 95679 Willi Linn MD comple carolyn FRC - 97047 Willi Linn MD comple carolyn DLCO - 04402 Willi Linn MD compl eted EKG Willi Linn MD complet ed SNOMED-CT: 017244023 945381 Current Medications Documented Willi Linn MD completed
--- OUTSIDE RECORDS SUMMARY | 2025-01-13 14:00 | XMS_ITS | Clinical Summary ---
Author Organization [facility] Address [address] [place] [address] Care Team Providers Care Blood Donor Recruiter Name Role Phone Unavailable Primary Care Provider Unavailabl e Source Comments [facility],non-owned Affiliates and Associated Physician Practices is amultiple site organization consisting of ambulatory clinics and hospital sitesin [place], [place]. This disclosure is being madepursuant to the Care Everywhere program and may not contain all information available regarding this patient. Last updated 18.[facility] Allergies Active Allergy Reactions Criticality Noted Date Comments Sulfa Drugs Rash Medium 03/22/2020 Medications * Be aware that medications may not be up to date on this document. Alwaysverify current medications with the patient. clotrimazole (LOTRIMIN AF) 1 % cream Apply [...] Active vitamin D, ergocalciferol, (DRISDOL) 1.25 MG (84710 UT) capsule Take 50,000 Units by mouth every 7 days 03/13/2020 Active fenofibrate (TRICOR) 145 MG tablet Take 145 mg by mouth once daily 02/12/2020 Active hydroCHLOROthia zide (MICROZIDE) 12.5 MG capsule Take 1 capsule [...] of Binge Drinking Not on file 03/06 Comments Unknown Sex and Gender Information Value Date Recorded Sex Assigned at Not on file Legal Sex Female 11:06 AM CDT Gender Identity Not on file Sexual Orientation [...] 8:11 AM CDT Height 157.5 cm (5' 2) 03/22/2020 8:11 AM CDT Body Mass Index [...] SCREENING 1962 LIPID TESTING 1962 MAMMOGRAM 1962 HIV SCREENING 1977 HEPATITIS C SCREENING 05/23/1980 DTAP/TDAP/TD VACCINES (1 - Tdap) 1981 PNEUMOCOCCAL VACCINE 50+ (1 of 1 - PCV) 2012 ZOSTER VACCINE (1 of 2) 2012 SCREENING FOR DIABETES 03/22/2020 Respiratory Syncytial Virus (RSV) Vaccine Pt: or over 60 yrs (1 - Risk 60-74 years 1-dose series) 2022 COVID-19 VACCINE (1 - 2023-2 5 season) 2024 DEPRESSION SCREENING 08/06/2024 INFLUENZA VACCINE (Season Ended) 2025 HEPATITIS B VACCINE Aged Out No longe [...] on patient's age to complete this topic [place] [address] [address]
--- OUTSIDE RECORDS SUMMARY | 2025-01-13 14:00 | XMS_ITS | Data Portability ---
Author Organization [place] - [employer], Main Office Address [address] [place] [address] Care Team Providers Care Patient Access Coordinator Name Role Phone VÍCTOR DANIELLE Primary Care Provider [phone] VÍCTOR DANIELLE Referring Provider [phone] Assessment Encounter Date Assessment Date Assessment LastModified [...] Please contact paatient to schedule 2023 024 [facility], [address] [place], [address], 4 12:05:23 Procedures colonoscop y procedure (PROC) 2024 025 [facility] (Pre-Screen), [address] [place], [address], 5 13:56:41 Surgeries None recorded. Imaging None recorded. Medication Orders dicyclomin e 10 mg capsule [address] [facility], [address] [place] [address], [address], 5 11:46:24 Golytely 236 gram-22.74 gram-6.74 gram-5.86 gram oral solution [address] [facility], [address] [place] [address], [address], 5 11:46:20 famotidine 40 mg tablet 2024 025 [email or web address] 1 [facility], [address] [place] [address], [address], 5 13:56:23 naproxen 500 mg tablet [address] [facility] [address] [facility], [address] [place] [address], [address], 5 10:41:12 pantoprazo le 40 mg tablet,del ayed release [address] [facility] [address] [facility], [address] [place] [address], [address], 5 10:40:57 famotidine 40 mg tablet [address] [facility], [address] [place], [address], 3 14:45:24 Patient TargetsNo targets recorded. Patient Instructions Encounter Date Encounter Id Patient Instructions Last Modified By Organization Details Last Modified Time 07/11/2023 [id number] PT WITH GERD DOI NG WELL WITH PANTOPRAZOLE 40 MG /D FAMOTIDINE 40 MG AT NIGHT . CONTINUE SAME .F/U IN 1 YR. [email or web address] Not available 07/11/2023 14:45:53 08/20/2024 [id number] GOLYTELY [email or web address] Not available 11:36:17 PT WITH ABD PAIN . REMOTE COLONOSCOPY . RECOMMEND COLON SCREENING . RISKS BENEFITS AND COMPLICATIONS WERE EXPLAINED TO PT . ( BLEEDING , PERFORATION , INFECTION , ) PT VERBALIZES UNDERSTANDING AND IS WILLING TO PROCEDE . [email or web address] Not available 08/20/2024 11:39:47 Reason for Referral Physical Therapist Referral for Pain of right knee joint Please contact paatient to schedule Referring Physician: Angel Alejandre, Orthopedic Surgery, Encounter Date: 01/02/2024 Results Created Date Observation Date Name Description Value Unit Range Abnormal Flag Note LastModifiedBy Organization Detail LastModifiedTime 12/27/19 24 XR, knee No observ ation record ed. [email or web address] Not Available 2023 17:13:23 Result Notes None recorded. Problems Name Problem SNOMED Code Status Onset Date Resolution Date Notes Provider Name and Address Organization Details Recorded Time Chronic back pain 244521567 Active Not Available [facility] 3 07:35:16 Pain of joint of wrist 016771883 Active Not Available [facility] 3 07:35:16 Plantar fasciitis 724401757 Active Not Available [facility] 3 07:35:16 Abdominal pain 69179246 Active Not Available [facility] 3 07:35:17 Gastroesop hageal reflux disease 847845116 Active Not Available [facility] 3 07:35:17 Gastroesop hageal reflux disease without esophagiti s 290474800 Active 2021 Not Available [facility] 3 07:35:17 Contusion of dorsum of foot 020951926 Active Not Available [facility] 3 07:35:17 Vitamin D deficiency 07537896 Active Not Available [facility] 3 07:35:17 Hypertensi ve disorder 88892887 Active Not Available [facility] 3 07:35:17 Dysphagia 25753963 Active Not Available [facility] 3 07:35:17 Obesity 732962168 Active Not Available [facility] 3 07:35:17 Gastritis 5955112 Active Not Available [facility] 3 07:35:17 Talipes planus 61812974 Active Not Available [facility] 3 07:35:18 Hyperlipid emia 31033120 Active Not Available [facility] 3 07:35:18 Pain of right knee joint 3494394470947 00 Active 2023 Sharon Callejas, LUKE null, [place] - [facility] 4 11:21:29 Problem Notes None recorded. Procedures Surgical History Date Name Laterality Status Provider Name and Address Organization Details Recorded Time 08/06/19 Colonoscopy completed Not Available [facility] 10/04/2022 07:28:37 ligation of bilateral fallopian tubes completed Not Available [facility] 10/04/2022 07:28:37 Unlisted cranfcl&maxlfcl px completed Not Available [facility] 10/04/2022 07:28:37 Tonsillectomy completed Not Available [facility] 10/04/2022 07:28:37 Partial hysterectomy completed Not Available [facility] 10/04/2022 07:28:37 Cholecystectomy completed Not Available [facility] 10/04/2022 07:28:37 Breast Surgery completed Not Available [facility] 10/04/2022 07:28:37 Endoscopy completed Not Available [facility] 10/04/2022 07:28:37 Imaging Results None recorded. Procedure Notes None recorded. Medical Equipment None Reported. Allergies Allergen ID Allergen Name Allergen Category Reaction Reaction Severity Criticality Documentation Date Start Date Code Code System Note Provider Name and Address Organization Details Recorded Time 50373 Substance with sulfonami de structure and antibacte rial mechanism of action (substanc e) medicatio n Not available Not available Not available 10/04/2022 77918 8003 SNOMED Not Available [facility] 3 07:42:55 Medications Name Sig Start Date Stop [...] Available Not Available Not Available Fluzone Quad 2018-(PF) 60 mcg(15 mcgx4)/0.5 mL intramuscul ar syringe [...] Available Not Available Vitals Date Recorded Body height Body mass index (BMI) Body weight Oxygen saturation Oxygen saturation in Arterial blood by Pulse oximetry Heart rate Systolic blood pressure Diastolic blood pressure Provider Name and Address Organization Details Last Updated DateTime 5 157.48 cm 44.8 kg/m2 181064. 13 g 97 % 97 % 61 /min 136 mm[Hg] 74 mm[Hg] [facility] [employer] [facility] [employer] [facility] 5 10:49:51 Date Recorded Body height Body mass index (BMI) Body weight Provider Name and Address Organization Details Last Updated DateTime 01/02/2024 157.48 cm 42.1 kg/m2 106767.25 g Sharon Callejas [facility] [employer] [facility] [employer] [facility] 01/02/2024 11:18:45 Date Recorded Body mass index (BMI) Body height Oxygen saturation Oxygen saturation in Arterial blood by Pulse oximetry Heart rate Body temperature Body weight Provider Name and Address Organization Details Last Updated DateTime 1 44.1 kg/m2 157.48 cm 95 % 95 % 61 /min 96.9 [degF] 696484. 76 g Not Available [facility] 3 07:31:31 Date Recorded Body mass index (BMI) Body height Oxygen saturation Oxygen saturation in Arterial blood by Pulse oximetry Heart rate Body temperature Body weight Systolic blood pressure Diastolic blood pressure Provider Name and Address Organization Details Last Updated DateTime 2 41.9 kg/m2 157.48 cm 99 % 99 % 72 /min 98.7 [degF] 264492. 65 g 124 mm[Hg] 60 mm[Hg] Not Available [facility] 3 07:31:29 Date Recorded Body height Body mass index (BMI) Body weight Heart rate Systolic blood pressure Diastolic blood pressure Provider Name and Address Organization Details Last Updated DateTime 3 157.48 cm 41.9 kg/m2 299131. 65 g 70 /min 122 mm[Hg] 62 mm[Hg] LUKE Dougherty [place] [facility] 14:27:51 Social History Question Answer Notes LastModified by Organizat ion Details LastModified Time Tobacco Smoking Status Never Smoker Not Available [facility] 10/04/2022 07:28:01 Do You Have An Advance Directive? No [id number] 026 Information not available 10/04/2022 What Is Your Level Of Caffeine Consumption? Heavy MIGRATION.8713095 026 Information not available 10/04/2022 How Much Tobacco Do You Chew? None MIGRATION.5366920 026 Information not available 10/04/2022 In The 14 Days Before Symptom Onset, Have You Had Close Contact With A Laboratory-confirm ed COVID-19 While That Case Was Ill? No MIGRATION.6864632 026 Information not available 10/04/2022 In The 14 Days Before Symptom Onset, Have You Had Close Contact With A Person Who Is Under Investigation For COVID-19 While That Person Was Ill? No MIGRATION.[id number] 026 Information not available 10/04/2022 What Type Of Diet Are You Following? REGULAR MIGRATION.0898581 026 Information not available 10/04/2022 Which Illicit Or Recreational Drugs Have You Used? No MIGRATION.0315822 026 Information not available 10/04/2022 Are There Any Guns Present In Your Home? No MIGRATION.9679858 026 Information not available 10/04/2022 What Was The Date Of Your Most Recent Tobacco Screening? 01/02/2024 [email or web address] Information not available 01/02/2024 What Is Your Relationship Status? MIGRATION.5570754 026 Information not available 10/04/2022 Do You Use Your Seat Belt Or Car Seat Routinely? Yes MIGRATION.9181265 026 Information not available 10/04/2022 Do You Have Smoke And Carbon Monoxide Detectors In Your Home? Yes MIGRATION.0319771 026 Information not available 10/04/2022 How Much Tobacco Do You Smoke? No MIGRATION.0963403 026 Information not available 10/04/2022 Do You Use Sunscreen Routinely? No MIGRATION.6912591 026 Information not available 10/04/2022 Have You Recently Traveled Abroad? No MIGRATION.3424481 026 Information not available 10/04/2022 Sex: Unknown Functional Status Question Answer Note LastModified by [employer] Details LastModified Time Do you use any illicit or recreational drugs? No MIGRATION.549436 7186 Information not available 10/04/2022 Do you or have you ever used any other forms of tobacco or nicotine? No MIGRATION.042680 8061 Information not available 10/04/2022 What is your level of alcohol consumption? None MIGRATION.658464 3373 Information not available 10/04/2022 Do you or have you ever used smokeless tobacco? Never used smokeless tobacco MIGRATION.794735 8739 Information not available 10/04/2022 What is your occupation? unemployed MIGRATION.411185 8758 Information not available 10/04/2022 Do you or have you ever used e-cigarettes or vape? Never used electronic cigarettes MIGRATION.957269 6854 Information not available 10/04/2022 What is your exercise level? Occasional MIGRATION.088876 2540 Information not available 10/04/2022 Mental Status Question Answer Note LastModified by [employer] Details LastModified Time Do you feel stressed (tense, restless, nervous, or anxious, or unable to sleep at night)? [id number] MIGRATION.101165359 6 Information not available 10/04/2022 Family History Relationship Description Onset Age of this Age Resolved Age Notes LastModified by Organization Details LastModified Time Mother Hypertensive disorder MIGRATION.321 [id number] Not available 10/04/2022 07:28:40 Mother Hypercholest erolemia MIGRATION.776 [id number] Not available 10/04/2022 07:28:40 Father Hypertensive disorder MIGRATION.636 [id number] Not available 10/04/2022 07:28:40 Father Hypercholest erolemia MIGRATION.672 [id number] Not available 10/04/2022 07:28:40 Father Diabetes mellitus MIGRATION.789 [id number] Not available 10/04/2022 07:28:40 Father Heart disease MIGRATION.780 0393673 Not available 10/04/2022 07:28:40 Sister Hypertensive disorder MIGRATION.803 [id number] Not available 10/04/2022 07:28:40 Sister Hypercholest erolemia MIGRATION.118 1421056 Not available 10/04/2022 07:28:40 Sister Diabetes mellitus MIGRATION.832 1174578 Not available 10/04/2022 07:28:40 Sister Kidney disease MIGRATION.151 0142891 Not available 10/04/2022 07:28:41 Sister Malignant neoplasm of ovary MIGRATION.361 [id number] Not available 10/04/2022 07:28:41 Medical History Condition Response ARTHRITIS Y URINARY/BLADDER/KIDNEY PROBLEMS Y OBESITY Y GI PROBLEMS Y BACK / NECK PROBLEMS Y INSOMNIA Y HYPERTENSION Y HIGH CHOLESTEROL / HYPERLIPIDEMIA Y Gynecological HistoryNo gynecological history recorded. Obstetrics History GPAL:G 0 P 0 0 0 0 Past Encounters Encounter ID Performer Location Encounter Start Date Encounter Closed Date Diagnosis/Indication Diagnosis SNOMED-CT Code Diagnosis ICD10 Code Diagnosis Note [id number] _ATHN_MIGR ATION_1 _ATHENA_M IGRATION_ DEFAULT_1 _1 , 01/05/2021 00:00:00 01/05/2021 11:50:25 [id number] _ATHN_MIGR ATION_1 _ATHENA_M IGRATION_ DEFAULT_1 _1 , 03/30/2021 00:00:00 03/30/2021 10:37:07 [id number] _ATHN_MIGR ATION_1 _ATHENA_M IGRATION_ DEFAULT_1 _1 , 04/05/2022 00:00:00 04/05/2022 12:06:40 [id number] Rena Tatum MD [facility] General Surgery [address] [address] 07/11/2023 14:25:50 07/11/2023 14:55:16 Gastroesophageal reflux disease without esophagitis 131916445 K21.9 [id number] Angel Alejandre MD [facility] [place] [address] [place] [address] 01/02/2024 11:00:06 01/02/2024 12:00:36 Pain of right knee joint 1777083353 70833 M25.372 [id number] Rena Tatum MD [facility] General Surgery [address] [address] 08/20/2024 10:38:04 08/20/2024 11:30:21 Gastroesophageal reflux disease without esophagitis 305857050 K21.9 Abdominal pain 60569078 R10.9 Health Concerns Section Related Observation LastModified by Organization Detai ls LastModified Time None Recorded Concern Status LastModified by Organization Details LastModified Time None Recorded Advance Directives Directive N: Payers Encounter Date Sequence Insurance Name Policy Number Policy Pearce Covered Member ID Pearce Member ID Guarantor Name 07/11/2023 1 [facility] ON OR AFTER 02/03/21 (MEDICAID REPLACEMENT - HMO) Ivelisse Ryan Dejan [id number] Ivelisse Wylie 01/02/2024 1 [facility] ON OR AFTER 02/03/21 (MEDICAID REPLACEMENT - HMO) Ivelisse Ryan Dejan [id number] Ivelisse Palominous 08/20/2024 1 [facility] ON OR AFTER 02/03/21 (MEDICAID REPLACEMENT - HMO) Ivelisse Ryan Dejan [id number] Ivelisse Palominous Notes Date Note Type Note Provider Name and Address Organization Details Recorded Time 07/11/2023 text/html IVELISSE WAS SEEN I N THE OFFICE TODAY FOR F/U . PT IS DOING WELL . HOWEVER SHE IS C/O FOOD IN HER THROAT SINCE STARTING TRULICITY . SHE DENIES N/V PYROSIS. Rena Tatum MD [address] [facility], [address], [place], [address], [email or web address] 07/11/2023 14:46:22 08/20/2024 text/html IVELISSE WAS SEEN I N THE OFFICE TODAY FOR A F/U. PT IS C/O B/L LOWER ABD PAIN NOT ASSOCIATED WITH DIARRHEA/ CONSTIPATION . ABD IS TENDER TO TOUCH. PT LAST SCOPE WAS MANY YRS AGO . PT IS TAKING DICYCLOMINE 10 MG 2X DAILY FOR ABD CRAMPING. Rena Tatum MD [address], [address], [place], [address], [email or web address] 08/20/2024 15:53:52 OBGyn Episode No OBEpisode recorded.
== END 2025-01-13 12:56 | disposition home or self-care (01) ==
PROVIDERS: PCP Physician Assistant; Visit Provider Nurse Practitioner
DX: J22 Unspecified acute lower respiratory infection (principal); R10.2 Pelvic and perineal pain; Z90.710 Acquired absence of both cervix and uterus
CPT/HCPCS: 71046; 76830; 76856

== ENCOUNTER 2025-05-18 10:30 | Emergency (ER) | payer OTHER, SELFPAY ==
--- NOTE | ~2025-05-18 | XR_ITS ---
EXAMINATION: [id number] DATE: 05/18/2025 11:27 INDICATION: Anterior left lower rib pain and shortness of breath post audible pop 2 days prior TECHNIQUE: A frontal inspiratory view of the chest and 3 views of the left ribs were obtained. COMPARISON: Chest radiograph dated 01/13/2025 and 11/04/2024 FINDINGS: No rib fractures identified. Unchanged mild bibasilar atelectasis/scarring. No other airspace opacities, pulmonary edema, pleural effusion or pneumothorax. Cardiomediastinal silhouette is normal. IMPRESSION: 1. No rib fracture or acute cardiopulmonary disease. Reviewed, dictated and finalized at location A.
[2025-05-18 10:41] VITALS: BP 131/74; PULSE 64; RESP 16; TEMP 36.1; O2SAT 100
--- NOTE | 2025-05-18 11:07 | ED.GENADULT ---
HPI - General Adult General Chief complaint: Unspecified Stated complaint: L side pain Time Seen by Provider: 05/18/25 10:50 Source: patient and RN notes reviewed Mode of arrival: ambulatory Limitations: no limitations History of Present Illness HPI narrative: 64-year-old female presents Express Care complaining of left lower rib pain/side pain for approximately 2 days. Patient said she was bending down proximally 2 days ago when she felt a pop in her left lower ribs followed by pain. Patient denies any breathing problems, cough, fevers, chest pains, nausea, vomiting, or any other symptoms. Patient reports the pain is worse when she takes a deep breath or when she coughs. Patient took Motrin without relief. Patient denies any significant past medical history. Related Data Home Medications ?Medication ?Instructions ?Recorded ?Confirmed ?Last Taken ?Type amlodipine 5 mg tablet mg 12/21/24 Unknown History dicyclomine 10 mg capsule mg 12/21/24 Unknown History famotidine 40 mg tablet mg 12/21/24 Unknown History fenofibrate nanocrystallized 145 mg PO 12/21/24 Unknown History mg tablet hydroxyzine HCl 25 mg tablet mg 12/21/24 Unknown History loratadine 10 mg tablet mg 12/21/24 Unknown History losartan 50 mg tablet mg 12/21/24 Unknown History metoprolol tartrate 25 mg tablet mg 12/21/24 Unknown History nitroglycerin 0.4 mg sublingual mg 12/21/24 Unknown History tablet omeprazole 40 mg capsule,delayed mg 12/21/24 Unknown History release oxybutynin chloride 10 mg mg PO 12/21/24 Unknown History tablet,extended release 24 hr paroxetine HCl 40 mg tablet mg PO 12/21/24 Unknown History ranolazine 500 mg tablet,extended mg PO 12/21/24 Unknown History release,12 hr trazodone 100 mg tablet mg 12/21/24 Unknown History folic acid 1 mg tablet 05/18/25 Unknown History ibuprofen 800 mg tablet mg 05/18/25 Unknown History Allergies Allergy/AdvReac Type Severity Reaction Status Date / Time Sulfa (Sulfonamide Allergy Intermediate N/V, HOT, Verified 05/18/25 10:59 Antibiotics) CLAMMY Review of Systems Review of Systems: CONSTITUTIONAL: Denies fever, chills, or sweats. EYES: Denies visual changes, redness, or discharge. ENT: Denies rhinorrhea, congestion, sore throat, or otalgia. CARDIOVASCULAR: Denies chest pain, palpitations, or edema. RESPIRATORY: Denies cough or dyspnea. GASTROINTESTINAL: Denies abdominal pain, nausea, vomiting, or diarrhea. GENITOURINARY: Denies dysuria or hematuria. SKIN: Denies rash or itching. MUSCULOSKELETAL: Denies back pain, joint pain, or myalgia. Positive for left lower rib pain. NEUROLOGIC: Denies headache, numbness, or weakness. PSYCHIATRIC: Denies anxiety or depression. All other systems reviewed are negative, except as documented in HPI. [facility] Past Medical History Medical History Anxiety Arthritis Obesity Kidney stones Hyperlipidemia Hypertension Angina pectoris GERD (gastroesophageal reflux disease) Surgical History Surgical History S/P lumpectomy, left breast benign History of cholecystectomy History of tonsillectomy Social History Social History Smoking status: Never smoker Alcohol intake: current Alcohol use details: rare Substance use type: does not use Living arrangements: with family Gender identity (if verbalized by the patient): Female Comments At the time of my signature, I reviewed and agree with the nursing past medical, surgical, social, and family history. There is no relevant family history pertinent to the patient complaint. Exam Narrative: GENERAL: This is a well-nourished, well-developed adult, in no apparent distress. They are non ill-appearing, nontoxic appearing. HEAD: normocephalic, atraumatic. EYES: Sclera clear/white. Conjunctiva normal. Vision is grossly intact. Extraocular movements intact EARS: External ears normal, Hearing grossly intact. NOSE: External nose normal THROAT: Mucous membranes moist, NECK: Neck supple, CARDIOVASCULAR: Regular rate and rhythm without murmurs, gallops, or rubs. CHEST WALL: No flail chest segment, no paradoxical movements. No obvious bruising or injury. Left lower chest wall/left lateral chest wall tender to palpate. No crepitus or step-offs appreciated on palpation. RESPIRATORY: Clear to auscultation. Breath sounds equal bilaterally. No wheezes, rales, or rhonchi. Respiratory rate normal, respiratory effort nonlabored, no respiratory distress SKIN: warm, Dry, intact with no suspicious lesions or rash, good texture and turgor. NEURO: awake, alert, and oriented to person, place and time. There were no obvious focal neurologic abnormalities. EXTREMITIES: No joint tenderness, effusion, or edema noted. BACK: Nontender without deformity. No CVA tenderness. Course Course Emergency Course: Portions of this record may have been created with voice recognition software Level of Care: Express Care Visit Vital Signs Vital signs: Vital Signs Temperature 97 F L 05/18/25 10:41 Pulse Rate 64 05/18/25 10:41 Respiratory Rate 16 05/18/25 10:41 Blood Pressure 131/74 05/18/25 10:41 Pulse Oximetry 100 05/18/25 10:41 Oxygen Delivery Room Air 05/18/25 10:41 Temperature 97 F L 05/18/25 10:41 Pulse Rate 64 05/18/25 10:41 Respiratory Rate 16 05/18/25 10:41 Blood Pressure 131/74 05/18/25 10:41 Pulse Oximetry 100 05/18/25 10:41 Oxygen Delivery Room Air 05/18/25 10:41 Reviewed Medical Decision Making MDM Narrative Medical decision making narrative: Chest x-ray and left rib x-ray negative for any fractures or acute findings. Likely patient has a rib contusion. Patient given incentive spirometer and discussed the importance of using it is. Patient educated on how to use it by nursing staff. Patient reports pain is 9/10 reports pain is unbearable. Will give her short course of [place]. Discussed physical exam findings. Advised supportive measures and signs/symptoms to go to the ER. Pt is appropriate for outpt treatment and f/u. Differential Diagnosis Differential Diagnosis: Rib contusion, rib dislocation, rib fracture Vital Signs Vital Signs: Vital Signs Temperature 97 F L 05/18/25 10:41 Pulse Rate 64 05/18/25 10:41 Respiratory Rate 16 05/18/25 10:41 Blood Pressure 131/74 05/18/25 10:41 Pulse Oximetry 100 05/18/25 10:41 Oxygen Delivery Room Air 05/18/25 10:41 Temperature 97 F L 05/18/25 10:41 Pulse Rate 64 05/18/25 10:41 Respiratory Rate 16 05/18/25 10:41 Blood Pressure 131/74 05/18/25 10:41 Pulse Oximetry 100 05/18/25 10:41 Oxygen Delivery Room Air 05/18/25 10:41 Imaging Data Radiologist's impression: ITS Impressions Ribs w/Chest X-Ray 05/18/25 12:20 IMPRESSION: 1. No rib fracture or acute cardiopulmonary disease. Critical Care Time Critical Care Time Critical Care Time: No Discharge Plan Discharge Clinical Impression: Contusion of rib on left side Qualifiers: Encounter type: initial encounter Qualified Code(s): S29.8XXA - Other specified injuries of thorax, initial encounter Patient Disposition: Home Condition: Stable Instructions: Rib Contusion (ED) Additional Instructions: The x-ray of your left ribs and chest x-ray were negative for any fractures or acute findings. It is likely of a rib contusion, this is normally self-limiting resolve on its own within 2-6 weeks. Please use the incentive spirometer to prevent any pneumonia. Please use it every 2 hours, on the hour, take 10 deep breaths, while awake. You may take ibuprofen 600 mg to 800 mg every 6-8 hours. Do not exceed more than 800 mg of ibuprofen per dose. Do not exceed more than 3200 mg ibuprofen in a day. You may take up to 1000 mg Tylenol every 6-8 hours. Do not exceed 1000 mg per dose, do exceed more than 4000 mg of Tylenol in a day. Take [place] as directed, [place] already contains Tylenol also be mindful the amount of Tylenol you are consuming. Do not drive or operate machinery while taking [place] as it may make you drowsy. Follow-up PCP in 3-5 days. If you developed fevers, worsening chest pains, shortness of breath, difficulty breathing, nausea vomiting, severe pains, or any serious concerns please go to the ER immediately. Patient Language: [place] Prescriptions: New hydrocodone-acetaminophen 5-325 mg tablet 1 tablet PO Q8H PRN (Reason: pain) Qty: 10 0RF No Action ibuprofen 800 mg tablet folic acid 1 mg tablet losartan 50 mg tablet oxybutynin chloride 10 mg tablet extended release 24hr PO famotidine 40 mg tablet amlodipine 5 mg tablet omeprazole 40 mg capsule,delayed release(DR/EC) trazodone 100 mg tablet nitroglycerin 0.4 mg tablet, sublingual hydroxyzine HCl 25 mg tablet paroxetine HCl 40 mg tablet PO dicyclomine 10 mg capsule loratadine 10 mg tablet metoprolol tartrate 25 mg tablet ranolazine 500 mg tablet extended release 12 hr PO fenofibrate nanocrystallized 145 mg tablet PO albuterol sulfate [Ventolin HFA] 90 mcg/actuation HFA aerosol inhaler 2 puff inhalation QID PRN (Reason: shortness of breath or wheezing) Qty: 6.7 0RF Rx Instructions: use as needed for shortness of breath and cough Follow-up/Referrals: Tee,JAMIL Robert [Primary Care Provider, Unknown] Time of Disposition: 12:31
== END 2025-05-18 12:35 | disposition home or self-care (01) ==
PROVIDERS: PCP Physician Assistant
DX: S20.212A Contusion of left front wall of thorax, initial encounter (principal); X58.XXXA Exposure to other specified factors, initial encounter; I10 Essential (primary) hypertension; E78.5 Hyperlipidemia, unspecified; I20.9 Angina pectoris, unspecified; K21.9 Gastro-esophageal reflux disease without esophagitis; M19.90 Unspecified osteoarthritis, unspecified site; E66.9 Obesity, unspecified; F41.9 Anxiety disorder, unspecified
CPT/HCPCS: 71101; 99213; G0463